=== PATIENT | female | born 1965 | race Caucasian/White ===

== ENCOUNTER 2021-05-09 08:16 | Outpatient (CLI) | payer OTHER, SELFPAY ==
--- NOTE | 2021-05-09 08:45 | USCV_ITS ---
Miroslava Zhang Age: 55 Gender: F : 1965 Exam Date: 05/09/2021 08:43 Ordering Phys: Jaimee Rinaldi MD ([email or web address]) Technologist: LYDIA [place] [facility] [place] Risk Factors: Previous Vascular Surgery: Right Brachial BP: / Left Brachial BP: / Right Left Velocity (cm/s) Spectral Plaque Velocity (cm/s) Spectral Plaque Syst/Diast Broadening Syst/Diast Broadening 87.10/ 24.30 Prox CCA 91.70 / 40.40 77.20/ 29.80 Mid CCA 85.40 / 34.20 76.10/ 29.80 Hetro Distal CCA 88.60 / 34.20 Hetro 76.10/ 31.10 Hetro Prox ICA 87.75 / 29.55 Hetro 80.80/ 28.00 Mid ICA 122.70/ 48.20 83.90/ 34.20 Distal ICA 121.20/ 37.30 155.40 ECA 1.09 ICA/CCA 1.44 Antegrade Vertebral Antegrade 49.70/ 15.50 cm/s 46.60/ 23.30 cm/s FINDINGS Minimal intimal thickening in the common carotid artery, internal carotid and at the bifurcations bilaterally. No unstable plaques or lesions were noted Normal Doppler flow velocities Antegrade flow in the vertebral arteries bilaterally CONCLUSIONS Minimal intimal thickening in the common carotid artery, internal carotid and at the bifurcations bilaterally. No unstable plaques or lesions were noted No significant stenosis, based on the above findings Dr Gerald Pompa MD [facility] (Electronically Signed) Final Date: 10 May 2021 07:46 S
--- NOTE | 2021-05-09 09:30 | USCV_ITS ---
Miroslava Zhang Age: 55 Gender: F : 1965 Exam Date: 05/09/2021 09:04 Ordering Phys: Jaimee Rinaldi MD ([email or web address]) Technologist: LYDIA Exam Location: [facility] – [place], [place] Indication: PALPITATIONS BP: 110 / 70 HR: 56 Rhythm: Other Technical Quality: Fair MEASUREMENTS (Male / Female) Normal Values 2D ECHO LV Diastolic Diameter PLAX 5.2 cm 4.2 - 5.9 / 3.9 - 5.3 cm LV Systolic Diameter PLAX 3.6 cm LV Chamber Size 3.7 cm IVS Diastolic Thickness 0.7 cm 0.6 - 1.0 / 0.6 - 0.9 cm IVS Systolic Thickness 1.3 cm LVPW Diastolic Thickness 0.6 cm 0.6 - 1.0 / 0.6 - 0.9 cm LVPW Systolic Thickness 1.3 cm RV Chamber Size 2.8 cm LVOT Diameter 2.0 cm LV Ejection Fraction 2D Teich 58.0 % LV Ejection Fraction MOD 2C 71.4 % LV Ejection Fraction 2C AL 71.9 % LA Diameter 3.6 cm LA Width 2.6 cm LA Height 4.5 cm RA Width 2.3 cm RA Height 3.6 cm Aorta at Sinotubular Diameter 3.2 cm M-MODE LV Diastolic Diameter MM 5.7 cm 4.2 - 5.9 / 3.9 - 5.3 cm LV Systolic Diameter MM 3.6 cm LV Ejection Fraction MM Teich 65.7 % IVS Diastolic Thickness MM 0.7 cm 0.6 - 1.0 / 0.6 - 0.9 cm IVS Systolic Thickness MM 1.3 cm LVPW Diastolic Thickness MM 0.9 cm 0.6 - 1.0 / 0.6 - 0.9 cm LVPW Systolic Thickness MM 1.4 cm Aortic Annulus Diameter 2.7 cm LA Ao Ratio MM 1.5 MV E Point Septal Separation 0.6 cm DOPPLER AV Peak Velocity 172.0 cm/s LVOT Peak Velocity 99.0 cm/s AV Area Cont Eq vti 2.0 cm squared AV Area Cont Eq pk 1.9 cm squared MV Area PHT 3.0 cm squared Mitral E to A Ratio 1.0 MV E' Velocity 56.0 cm/s Mitral E to MV E' Ratio 11.0 Mitral E to LV E' Lateral Ratio 13.6 Mitral E to LV E' Septal Ratio 9.3 TR Peak Velocity 229.0 cm/s TR Peak Gradient 21.0 mmHg TR Mean Velocity 182.2 cm/s TR Mean Gradient 14.1 mmHg TR Velocity Time Integral 79.0 cm TV Peak E Velocity 67.0 cm/s Right Atrial Pressure 3.0 mmHg Pulmonary Artery Systolic Pressu 24.0 mmHg PV Peak Velocity 88.0 cm/s RV Acceleration Time 0.1 s RV Ejection Time 0.4 s RV AcT/ET 0.4 FINDINGS Left Ventricle Normal left ventricular size, systolic function and wall thickness, with no regional wall motion abnormalities. Left ventricular ejection fraction is estimated at 55-60 %. Normal diastolic function. Right Ventricle Normal right ventricular size and systolic function. Right ventricular systolic pressure 24 mmHg. Right Atrium Normal right atrial size. Right atrial pressure estimated at 3 mm Hg. Left Atrium Mildly increased left atrial size. Mitral Valve Structurally normal mitral valve. No mitral valve stenosis. Mild-moderate mitral valve regurgitation. Aortic Valve Structurally normal trileaflet aortic valve. No aortic valve stenosis. No aortic valve regurgitation. Tricuspid Valve Structurally normal tricuspid valve. No tricuspid valve stenosis. Mild to moderate tricuspid valve regurgitation. Pulmonic Valve Pulmonic valve not well visualized. Trace pulmonary valve regurgitation. Pericardium No pericardial effusion. Aorta Normal size aortic root and proximal ascending aorta. Normal sized inferior vena cava with normal respiratory variations. CONCLUSIONS 1. Normal left ventricular size, systolic function and wall thickness, with no regional wall motion abnormalities. Left ventricular ejection fraction is estimated at 55-60 %. Normal diastolic function. 2. Mild to moderate mitral and tricuspid valve regurgitation. 3. Pulmonary artery pressure estimated at 24 mm Hg. 4. Mildly increased left atrial size. 5. No prior similar studies to compare. Jaimee Rinaldi MD (Electronically Signed) Final Date: 11 May 2021 19:36 S
== END 2021-05-09 08:17 | disposition home or self-care (01) ==
LOC: US 08:21
PROVIDERS: PCP Nurse Practitioner Family; Visit Provider Internal Medicine Cardiovascular Disease
DX: R00.2 Palpitations (principal); R55 Syncope and collapse; I08.1 Rheumatic disorders of both mitral and tricuspid valves; I65.23 Occlusion and stenosis of bilateral carotid arteries
CPT/HCPCS: 93306; 93880

== ENCOUNTER 2022-12-10 13:34 | Outpatient (CLI) | payer OTHER, SELFPAY ==
--- NOTE | 2022-12-10 14:00 | MM_ITS ---
WS: [id number] BILATERAL 3D TOMOSYNTHESIS DIGITAL SCREENING MAMMOGRAPHY WITH CAD CLINICAL INFORMATION: screening mammo HISTORY: Screening mammogram. No current complaints. COMPARISON: 2019 TECHNIQUE: Bilateral CC and MLO views. FINDINGS: Scattered fibroglandular densities bilaterally. No suspicious focal mass, asymmetry, calcifications, or architectural distortion. No evidence of malignancy. Scattered incidental intramammary lymph node similar to previous. A few tiny incidental punctate calcifications. MM/[place] [id number] IMPRESSION: BI-RADS: 2-Benign FOLLOW UP: 1 Year Follow-up Recommend return to annual screening mammography.
== END 2022-12-10 13:35 | disposition home or self-care (01) ==
PROVIDERS: PCP Clinical Nurse Specialist Adult Health; Visit Provider Clinical Nurse Specialist Adult Health
DX: Z12.31 Encounter for screening mammogram for malignant neoplasm of breast (principal)
CPT/HCPCS: 77063; 77067

== ENCOUNTER 2023-02-28 00:34 | Emergency (ER) | payer OTHER, SELFPAY ==
[2023-02-28] VITALS (8 sets, daily range): BP systolic 116–148; BP diastolic 59–90; PULSE 72–88; RESP 16–19; TEMP 36.6; O2SAT 95–99; BMI 35.4
--- NOTE | 2023-02-28 00:36 | XRR_ITS ---
PROCEDURE INFORMATION: Exam: XR Chest Exam date and time: 02/28/2023 12:59 AM Age: 57 years old Clinical indication: Chest pressure; Patient HX: C/O chest pain; Additional info: Cp TECHNIQUE: Imaging protocol: Radiologic exam of the chest. Views: 1 view. COMPARISON: CR XR chest 1V [id number] 06/09/2019 12:21 PM FINDINGS: Lungs: Unremarkable. No consolidation. Pleural spaces: Unremarkable. No pleural effusion. No pneumothorax. Heart/Mediastinum: Unremarkable. No cardiomegaly. Bones/joints: Unremarkable. XR/XR chest 1V portable [id number] IMPRESSION: No acute findings.
--- NOTE | 2023-02-28 00:38 | ECG_ITS ---
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 Measurements Intervals [place] Rate: 86 P: 82 ND: 162 QRS: 2 QRSD: 78 T: 114 QT: 348 QTc: 418 Interpretive Statements SINUS RHYTHM NONSPECIFIC T-WAVE ABNORMALITY Compared to ECG 06/09/2019 15:22:50 T-wave abnormality now present Electronically Signed On 02-28-2023 16:13:07 CDT by Stephane Lama M.D. [email or web address] specialty [email or web address] - cincinnatiFly Fishing Hunter/store/NU/[id number]/[id number] f
--- NOTE | 2023-02-28 00:45 | ED_ITS ---
HPI - Chest Pain General: Chief Complaint: Chest Pain Stated Complaint: Chest Pains Time Seen by Provider: 02/28/23 00:35 Source: patient Mode of arrival: ambulatory Limitations: no limitations History of Present Illness: 57-year-old female states that she has been having severe acid reflux the last 3 days especially at night states tonight started having the pain again in her chest developed burning pain at midnight states that then started rating to the left and she became extremely nervous she took a nitro and her pain has improved currently 2 out of 10 denies any diaphoresis denies any dyspnea states she has no history of heart disease. Associated symptoms: Deny abdominal pain, dyspnea, fever(s), nausea or vomiting Review of Systems Const: Denies: fever(s), chills or body aches Eyes: Denies: eye discomfort ENMT: Denies: throat pain or dental pain Card: Reports: chest pain Resp: Denies: dyspnea GI: Denies: abdominal pain, nausea, vomiting or diarrhea Musc: Denies: neck pain or back pain Skin/Breast: Denies: rash Neuro: Denies: headache(s) PFSH ED PFSH: Medical History Anxiety Depression GERD (gastroesophageal reflux disease) History of fracture of right ankle HTN (hypertension) Surgical History Hx of hysterectomy Hx of tonsillectomy Family History Brother CAD (coronary artery disease), Onset Age: 29 Stented coronary artery x8 Family history of premature coronary artery disease Cancer Mother Stented coronary artery CAD (coronary artery disease), Onset Age: 45 Cancer colon Father CAD (coronary artery disease), Onset Age: 43 Stented coronary artery Family history of CABG Other Diabetes Denies family history of Stroke Social History Smoking and tobacco status: current every day smoker cigarettes Packs smoked per day: 0.25 Alcohol intake: never Substance/Drug Use: never 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 [employer] Physical Exam Const: COMMON NORMALS: no acute distress, patient oriented x3 and healthy appearing HENMT: COMMON NORMALS: normocephalic and atraumatic HEAD & SCALP: normocephalic and atraumatic Eye: COMMON NORMALS: conjunctivae normal CONJUNCTIVA: Yes conjunctivae normal Neck/C-Spine: COMMON NORMALS: full ROM and supple Chest: COMMONS NORMALS: normal inspection of the chest and normal palpation of entire chest wall Resp: COMMON NORMALS: normal respiratory effort, No retractions, No use of accessory muscles and clear to auscultation bilaterally AUSCULTATION: clear to auscultation bilaterally Cardio: COMMON NORMALS: regular rate, regular rhythm and No murmurs present (Cardio) RATE: regular rate RHYTHM: regular rhythm GI: COMMON NORMALS: Normal to inspection, nondistended, normoactive bowel sounds present, Soft to palpation, non-tender and no masses PALPATION: Yes Soft to palpation Extremity: COMMON NORMALS: normal to inspection and full ROM Neuro: COMMON NORMALS: patient oriented x3, moves all extremities and no focal motor deficits Psych: COMMON NORMALS: mental status grossly normal, Normal thought process present and cooperative THOUGHT PROCESS: Normal thought process present Skin: COMMON NORMALS: no rashes or lesions noted and no wounds GENERAL SKIN EXAM: no rashes or lesions noted Course Vital Signs: Vital signs: Vital Signs Temperature 97.8 F 02/28/23 00:35 Pulse Rate 88 02/28/23 03:33 Respiratory Rate 16 02/28/23 03:33 Blood Pressure 134/76 02/28/23 03:33 Pulse Oximetry 97 02/28/23 03:33 Oxygen Delivery Me thod Room Air 02/28/23 03:33 MDM - Chest Pain Medical Decision Making Patient presents for chest pains atypical in nature she has been chest pain-free here her troponins are negative EKGs are normal she has no signs of pulmonary embolism or dissection she is stable for discharge she is to follow-up with PCP and return if worsening. Medical Records I reviewed the patient's medical records. Lab Data I reviewed the patient's lab results. 02/28/23 00:56 02/28/23 00:56 Radiology Impressions Chest X-Ray 02/28/23 00:36 IMPRESSION: No acute findings. Laboratory Results WBC 9.9 10^3/uL (4.0-10.0) 02/28/23 00:56 RBC 4.44 10^6/uL (4.1-5.3) 02/28/23 00:56 Hgb 12.9 g/dL (11.5-15.3) 02/28/23 00:56 Hct 40.2 % (37.0-47.0) 02/28/23 00:56 MCV 90.5 fl (81-99) 02/28/23 00:56 MCH 29.1 pg (28.0-34.0) 02/28/23 00:56 MCHC 32.1 g/dL (30.0-36.0) 02/28/23 00:56 RDW 13.2 % (12.1-15.1) 02/28/23 00:56 Plt Count 280 10^3/cmm (130-400) 02/28/23 00:56 MPV 10.2 fL (7.4-10.4) 02/28/23 00:56 Neut % (Auto) 54.4 % 02/28/23 00:56 Lymph % (Auto) 36.4 % 02/28/23 00:56 [place] % (Auto) 6.8 % 02/28/23 00:56 Eos % (Auto) 1.5 % 02/28/23 00:56 Baso % (Auto) 0.7 % 02/28/23 00:56 Neut # (Auto) 5.39 10^3/uL (1.8-7.7) 02/28/23 00:56 Lymph # (Auto) 3.6 10^3/uL (0.8-4.8) 02/28/23 00:56 [place] # (Auto) 0.7 10^3/uL (0.2-0.9) 02/28/23 00:56 Eos # (Auto) 0.2 10^3/uL (0.0-0.8) 02/28/23 00:56 Baso # (Auto) 0.1 10^3/uL (0.0-0.1) 02/28/23 00:56 Nucleated RBC % (auto) 0 % 02/28/23 00:56 Nucleated RBCs # 0.0 /100WBC 02/28/23 00:56 Sodium 138 mmol/L (136-145) 02/28/23 00:56 Potassium 3.9 mmol/L (3.5-5.1) 02/28/23 00:56 Chloride 102 mmol/L (98-107) 02/28/23 00:56 Carbon Dioxide 26 mmol/L (22-29) 02/28/23 00:56 Anion Gap 13.9 (5-19) 02/28/23 00:56 BUN 11 mg/dL (6-20) 02/28/23 00:56 Creatinine 0.6 mg/dL (0.5-0.9) 02/28/23 00:56 GFR Calculation 103.4 mL/min (90-130) 02/28/23 00:56 Glucose 106 mg/dL (65-115) 02/28/23 00:56 Calculated Osmolality 286 mOsm/kg (285-295) 02/28/23 00:56 Calcium 8.8 mg/dL (8.5-10.5) 02/28/23 00:56 Total Bilirubin 0.2 mg/dL (0.15-1.2) 02/28/23 00:56 AST 16 U/L (0-32) 02/28/23 00:56 ALT 13 U/L (0-33) 02/28/23 00:56 Alkaline Phosphatase 113 U/L (35-105) H 02/28/23 00:56 Troponin T Baseline 9 ng/L (0-10) 02/28/23 00:56 Troponin T 120 Minute 11.48 ng/L (0-10) H 02/28/23 02:57 Delta Troponin T 2.48 ABS# (0-10) 02/28/23 02:57 Total Protein 6.5 g/dL (6.6-8.7) L 02/28/23 00:56 Albumin 3.9 g/dL (3.5-5.2) 02/28/23 00:56 Globulin 2.6 g/dL (1.3-4.6) 02/28/23 00:56 Imaging Data CXR: I personally reviewed and interpreted this imaging study as follows: My impression: no acute abnormality EKG Data EKG 1: I personally reviewed and interpreted this EKG as follows: EKG interpretation date: 02/28/23 EKG interpretation time: 00:38 Interpretation: nsr hr [address] or t wave abnormalities qrs 78 qtc 392 EKG 2: I personally reviewed and interpreted this EKG as follows: EKG interpretation date: 02/28/23 EKG interpretation time: 02:33 Interpretation: nsr hr [address] or t wave abnormalities qrs 98 qtc 403 Discharge Plan Discharge Patient Disposition: Home Clinical Impression: Chest pain Condition: Stable Prescriptions: No Action omeprazole 20 mg capsule,delayed release(DR/EC) 20 mg PO DAILY aspirin 81 mg tablet,delayed release (DR/EC) 81 mg PO DAILY multivitamin Tablet 1 tab PO DAILY fluoxetine 20 mg capsule 20 mg PO DAILY Qty: 90 3RF metoprolol tartrate 25 mg tablet 12.5 mg PO BID Qty: 90 3RF prednisone 20 mg tablet See Rx Instructions .Route .COMPLEX Qty: 14 0RF Rx Instructions: 2 tabs PO daily for 4 days, then 1 tab PO daily X 4 days, then 0.5 tab daily for 4 days, then stop; gabapentin 100 mg capsule 100 mg PO DAILY Qty: 14 0RF Discharge Orders: Discharge ED (Routine); Ordered 02/28/23 Ordered By: Willam Ochoa Referrals: Kaushik Paul CORPORATE LIBRARIAN [Primary Care Provider] - Discharge Diet: Advance as tolerated Discharge Activity: Resume usual activity Patient Instructions: Chest Pain (ED) Coding Level of Care Code ED Carpenter Labor Supervisor for Wendy Leary
[2023-02-28] MEDS: lidocaine 2% viscous 15 ML, aluminum-mag hydrox-simethicon 30 ML, sucralfate oral liq 1 GM PO (00:56)
[2023-02-28] MEDS: aspirin 81 mg Chew Tablet 324 MG PO (00:56)
[2023-02-28 00:59] LABS: Basophils # 0.1 10^3/uL (0.0-0.1); Basophils % 0.7 %; Eosinophils # 0.2 10^3/uL (0.0-0.8); Eosinophils % 1.5 %; Hematocrit 40.2 % (37.0-47.0); Hemoglobin 12.9 g/dL (11.5-15.3); Lymphocytes # 3.6 10^3/uL (0.8-4.8); Lymphocytes % 36.4 %; Mean Corpuscular HGB Conc 32.1 g/dL (30.0-36.0); Mean Corpuscular Hemoglobin 29.1 pg (28.0-34.0); Mean Corpuscular Volume 90.5 fl (81-99); Mean Platelet Volume 10.2 fL (7.4-10.4); Monocytes # 0.7 10^3/uL (0.2-0.9); Monocytes % 6.8 %; Neutrophils # 5.39 10^3/uL (1.8-7.7); Neutrophils % 54.4 %; Nucleated Red Blood Cells % 0 %; Platelet Count 280 10^3/cmm (130-400); Red Blood Count 4.44 10^6/uL (4.1-5.3); Red Cell Distribution Width 13.2 % (12.1-15.1); White Blood Count 9.9 10^3/uL (4.0-10.0)
[2023-02-28 01:16] LABS: Troponin(5th) Baseline 9 ng/L (0-10)
[2023-02-28 01:19] LABS: Alanine Aminotransferase 13 U/L (0-33); Albumin Level 3.9 g/dL (3.5-5.2); Alkaline Phosphatase 113 U/L (35-105); Anion Gap 13.9 (5-19); Aspartate Amino Transferase 16 U/L (0-32); Blood Urea Nitrogen 11 mg/dL (6-20); Calcium 8.8 mg/dL (8.5-10.5); Carbon Dioxide 26 mmol/L (22-29); Chloride 102 mmol/L (98-107); Globulin 2.6 g/dL (1.3-4.6); Glomerular Filtration Rate 103.4 mL/min (90-130); Glucose 106 mg/dL (65-115); Osmolality Calculated 286 mOsm/kg (285-295); Potassium 3.9 mmol/L (3.5-5.1); Sodium 138 mmol/L (136-145); Total Bilirubin 0.2 mg/dL (0.15-1.2); Total Protein 6.5 g/dL (6.6-8.7)
--- NOTE | 2023-02-28 02:36 | ECG_ITS ---
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 Measurements Intervals [place] Rate: 67 P: -27 ID: 172 QRS: 35 QRSD: 98 T: 62 QT: 387 QTc: 411 Interpretive Statements SINUS RHYTHM NONSPECIFIC ST & T-WAVE ABNORMALITY Compared to ECG 02/28/2023 00:38:39 No significant changes Electronically Signed On 02-28-2023 16:15:50 CDT by Stephane Lama M.D. [email or web address] Namewayne healthcare main campusNavTech/store/OM/[id number]
[2023-02-28 03:26] LABS: Troponin 5 2HR 11.48 ng/L (0-10)
[2023-02-28 03:27] LABS: Troponin 5 2HR Delta 2.48 ABS# (0-10)
== END 2023-02-28 03:41 | disposition home or self-care (01) ==
PROVIDERS: Emergency Provider Emergency Medicine; PCP Clinical Nurse Specialist Adult Health
DX: R07.9 Chest pain, unspecified (principal); Z79.82 Long term (current) use of aspirin; I10 Essential (primary) hypertension; F17.210 Nicotine dependence, cigarettes, uncomplicated
CPT/HCPCS: 71045; 80053; 84484; 85025; 93005; 99285

== ENCOUNTER 2023-03-19 16:17 | Emergency (ER) | payer OTHER, SELFPAY ==
[2023-03-19 16:28] VITALS: BMI 36.3
[2023-03-19 16:33] VITALS: BP 152/83; PULSE 93; RESP 18; TEMP 36.7; O2SAT 96
--- NOTE | 2023-03-19 16:33 | ECG_ITS ---
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 Measurements Intervals [place] Rate: 90 P: 0 NC: 158 QRS: -1 QRSD: 74 T: 122 QT: 335 QTc: 411 Interpretive Statements SINUS RHYTHM NONSPECIFIC T-WAVE ABNORMALITY Compared to ECG 02/28/2023 02:33:16 No significant changes Electronically Signed On 03-19-2023 17:46:05 CDT by Pee Brock M.D. [email or web address] [email or web address] county general hospitalNextlytrumbull memorial hospital.QRGL/store/NU/[id number]/[id number] f
== END 2023-03-19 16:40 | disposition left against medical advice (07) ==
PROVIDERS: Emergency Provider Family Medicine; PCP Clinical Nurse Specialist Adult Health
DX: Z53.21 Procedure and treatment not carried out due to patient leaving prior to being seen by health care provider (principal)
CPT/HCPCS: 93005

== ENCOUNTER 2023-03-26 09:32 | Outpatient (CLI) | payer OTHER, SELFPAY ==
[2023-03-26 10:19] VITALS: BMI 36.6
--- NOTE | 2023-03-26 10:19 | ECG_ITS ---
[facility] Test Date: 2023-03-26 Pat Name: Miroslava Zhang Department: Room: Gender: Female Screen Operator: Vanessa Luis : 1965 Requested By: Kaushik Herrera Order Number: [id number] Nayan MD: Gerald Pompa M.D. Interpretive Statements NAME OF STUDY: EXERCISE SESTAMIBI STRESS TEST INDICATION: Chest Pain; Shortness of Breath PROCEDURE: The baseline electrocardiogram showed sinus bradycardia with diffuse nonspecific T wave changes in the precordial leads] . At the baseline, the patient's blood pressure was 137/98 mm Hg with a heart rate of 101. The patient exercised for 3 minutes on a standard Lui protocol. Patient attained a maximum heart rate of 149 beats per minute(90% of the maximum predicted heart rate) with a blood pressure at the peak exercise of 160/82 mm Hg. The EKG at the peak exercise revealed some nonspecific ST-T changes. Patient complained of chest pain and shortness of breath with exercise sestamibi was injected 1 minute prior to the peak exercise During the recovery phase, there were no new changes. The blood pressure went up to 250/107, during the recovery phase Blood pressure at the end of the recovery phase was 155/112 mm Hg with a heart rate of 101 per minute. CONCLUSION: 1. Nonspecific EKG changes with the treadmill exercise. 2. Exercise-induced chest pain and shortness of breath 3. Impaired exercise tolerance, attained a maximum of 4.6 METs 4. Hypertensive response to exercise 4. Sestamibi/Sestamibi perfusion results pending; see separate report. Electronically Signed On 03-28-2023 7:57:31 CDT by Gerald Pompa M.D. [email or web address].Sellf/store/[id number]
--- NOTE | 2023-03-26 10:20 | NMCV_ITS ---
NM jhoan perf SPECT r/s* [id number] Miroslava Zhang Age: 57 Gender: F : 1965 Exam Date: 03/26/2023 10:41 Ordering Phys: Kaushik Paul NP Technologist: BRITNI Guthrie Exam Location: [facility] Indications: CHEST PAIN STRESS TEST Please see separate stress test [facility] for full findings IMAGE PROTOCOL Rest/Stress 1 Exercise Day Radiopharmaceutical Dose (mCi) Administration Site Administered by Rest: Tc-99m 10.4 IV BRITNI Ware Sestamibi Stress:Tc-99m 33.0 IV BRITNI Ware Sestamibi Rest: 26-Mar-2023 60 Discovery 630 Stress: 26-Mar-2023 30 Discovery 630 Radiopharmaceutical was injected at 87 % maximum heart rate. Images obtained in supine and prone position. SPECT RESULTS Technical Quality: Excellent Raw Data Analysis: Normal Image Corrections: No attenuation or motion correction applied Summed Stress Score: 10 Summed Rest Score: 0 Summed Difference Score: 10 PERFUSION FINDINGS Moderate area of moderately decreased tracer uptake was noted in the mid and apical anterior, mid anterolateral, mid inferolateral, apical lateral and LV apex. Significant reversibility was noted in these regions at rest FUNCTIONAL RESULTS (calculated via Gated SPECT) Stress Image LV EF (%): 64 Stress EDV (mL):98 TID: 0.9 Stress ESV (mL):35 FUNCTIONAL FINDINGS: Segmental wall motion analysis revealing no gross wall motion abnormalities IMPRESSIONS 1. Myocardial perfusion imaging revealing moderate area of reversible defect involving the anterior, anterolateral, inferolateral, apical lateral and LV apex, suggesting ischemia in the distribution of the left and descending artery/circumflex artery. 2. Normal LV ejection fraction 64%. 3. LV wall motion analysis revealing no gross wall motion abnormalities. 4. Normal LV volume No similar previous studies are available for comparison Dr Gerald Pompa MD [facility] (Electronically Signed) Final Date: 26 Mar 2023 16:18 S
[2023-03-26 11:50] VITALS: BP 155/112; PULSE 100
== END 2023-03-26 09:33 | disposition home or self-care (01) ==
LOC: CDL 09:32
PROVIDERS: PCP Clinical Nurse Specialist Adult Health; Visit Provider Clinical Nurse Specialist Adult Health
DX: R07.9 Chest pain, unspecified (principal); R06.02 Shortness of breath
CPT/HCPCS: 36415; 78452; 93017; A9500

== ENCOUNTER → 2023-04-02 09:54 | Outpatient (BNVA) | payer OTHER, SELFPAY | PROVIDERS: PCP Clinical Nurse Specialist Adult Health; Visit Provider Nurse Practitioner | DX: I10 Essential (primary) hypertension (principal) | CPT/HCPCS: 80061; 84443 ==

== ENCOUNTER 2023-04-03 16:02 | Inpatient (IN) | payer OTHER, SELFPAY ==
[2023-04-03 18:05] VITALS: BMI 32.1
[2023-04-03 20:19] VITALS: BP 119/70; PULSE 81; RESP 21; TEMP 36.7; O2SAT 95
--- NOTE | 2023-04-03 20:24 | ECG_ITS ---
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 Measurements Intervals [place] Rate: 74 P: 41 TN: 177 QRS: 35 QRSD: 89 T: 78 QT: 393 QTc: 438 Interpretive Statements SINUS RHYTHM ST DEVIATION AND MODERATE T-WAVE ABNORMALITY, CONSIDER ANTERIOR ISCHEMIA [-0.1+ mV T-WAVE IN V3/V4] Compared to ECG 03/19/2023 16:28:15 Possible ischemia now present T-wave abnormality still present Electronically Signed On 04-04-2023 17:39:03 CDT by Pee Brock M.D. [email or web address] ([employer])Renavance Pharmacleveland [facility].AltraBiofuels/store/OM/[id number]
[2023-04-03] MEDS: sodium chloride 0.9% 1,000 ML 75 ML IV (20:58)
[2023-04-03 21:15] LABS: Basophils # 0.1 10^3/uL (0.0-0.1); Basophils % 0.5 %; Eosinophils # 0.2 10^3/uL (0.0-0.8); Eosinophils % 1.4 %; Hemoglobin 13.3 g/dL (11.5-15.3); Lymphocytes # 3.9 10^3/uL (0.8-4.8); Lymphocytes % 33.2 %; Mean Corpuscular HGB Conc 33.3 g/dL (30.0-36.0); Mean Corpuscular Hemoglobin 30.6 pg (28.0-34.0); Mean Platelet Volume 9.9 fL (7.4-10.4); Monocytes # 0.8 10^3/uL (0.2-0.9); Monocytes % 7.1 %; Neutrophils # 6.76 10^3/uL (1.8-7.7); Neutrophils % 57.5 %; Nucleated Red Blood Cells % 0 %; Platelet Count 258 10^3/cmm (130-400); Red Blood Count 4.35 10^6/uL (4.1-5.3); Red Cell Distribution Width 13.6 % (12.1-15.1); White Blood Count 11.8 10^3/uL (4.0-10.0)
--- NOTE | 2023-04-03 21:16 | PM.HP ---
Providers/Chief Complaint Admitting Physician: Pee Brock M.D Primary Care Provider: Kaushik Paul Chief Complaint: Unstable Angina History of Present Illness Miroslava Zhang is a 57 year old female with past medical history of hypertension, smoking who was seen earlier in the clinic today with worsening chest pain symptoms. Her symptoms are concerning for unstable angina. She wakes up in the middle of the night with significant chest pain. Also has exertional symptoms as well. No active chest pain. Review of Systems Const: Reports: fatigue Card: Reports: chest pain, palpitations and dyspnea on exertion; Denies: irregular heart rhythm, swelling of feet/ankles, lightheadedness, pre-syncope, orthopnea or leg pain with exertion Resp: Reports: dyspnea; Denies: productive cough or non-productive cough Musc: Reports: neck pain; Denies: back pain Neuro: Reports: headache(s); Denies: dizziness Psych: Denies: anxiety, depression, suicidal ideation or homicidal ideation Bob/Lymph: Denies: easy bruising or easy bleeding Medications/Allergies Home Medications Medication Instructions Recorded Confirmed Last Taken Type aspirin 81 mg tablet,delayed 81 mg PO QAM 01/09/21 04/04/23 Unknown History release multivitamin 1 tab PO QAM 01/09/21 04/04/23 Unknown History metoprolol tartrate 25 mg tablet 12.5 mg PO BID #90 tabs 11/27/22 04/04/23 Unknown Rx nitroglycerin 0.4 mg sublingual 0.4 mg sublingual Q5M PRN chest 03/08/23 04/04/23 Unknown Rx tablet pain #20 tabs omeprazole 20 mg capsule,delayed 20 mg PO QAM 04/02/23 04/04/23 Unknown History release pen needle, diabetic 33 gauge x #100 ea 04/03/23 04/04/23 Unknown Rx / acetaminophen 500 mg tablet 1,000 mg PO Q6H PRN Pain 04/04/23 04/04/23 Unknown History fluoxetine 40 mg capsule 40 mg PO QAM 04/04/23 04/04/23 Unknown History liraglutide 0.6 mg/0.1 mL (18 mg/3 See Rx Instructions SUBCUT 04/04/23 04/04/23 Unknown History mL) subcutaneous pen injector .COMPLEX not started as of 04/04/23 (Victoza 3-Tony) valsartan 80 mg tablet (Diovan) 80 mg PO QAM 04/04/23 04/04/23 Unknown History Allergies Allergy/AdvReac Type Severity Reaction Status Date / Time bee stings Allergy Severe anaphylaxis Uncoded 04/03/23 14:31 PFSH Acute PFSH: Medical History Anxiety Depression GERD (gastroesophageal reflux disease) History of fracture of right ankle HTN (hypertension) Obesity (BMI 30-39.9) Surgical History Hx of hysterectomy Hx of tonsillectomy Family History Brother CAD (coronary artery disease), Onset Age: 29 Stented coronary artery x8 Family history of premature coronary artery disease Cancer Mother Stented coronary artery CAD (coronary artery disease), Onset Age: 45 Cancer colon Father CAD (coronary artery disease), Onset Age: 43 Stented coronary artery Family history of CABG Other Diabetes Denies family history of Stroke Social History Smoking and tobacco status: current every day smoker cigarettes Packs smoked per day: 0.25 Second hand smoke exposure: No Smoking risk assessment/counseling performed?: Yes Alcohol intake: unknown Desire information about alcohol rehabilitation?: No Counseling given: No Substance/Drug Use: unknown Desire information about substance/drug rehabilitation?: No Counseling given: No Adopted: No Caregiver/support person: No Lives independently: Yes Household members: none Housing: House Marital status: Single Number of children: 2 service: No Current occupational status: employed 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 [] NECK: No jugular vein distension. [] HEENT: No cyanosis. No icterus. No pallor. [] HEART: Regular S1 and S2. No murmur, rub or gallop. [] LUNGS: Clear to auscultate bilaterally. [] CENTRAL NERVOUS SYSTEM: Grossly nonfocal. [] EXTREMITIES: Lower extremities with no edema Data 04/03/23 20:55 04/03/23 20:55 A&P Assessment and plan (1) Unstable angina: (2) Metabolic syndrome: (3) Abnormal stress test: (4) HTN (hypertension): Qualifiers: Hypertension type: essential hypertension Qualified Code(s): I10 - Essential (primary) hypertension Plan Patient has presented with unstable anginal symptoms. We will obtain EKG. Continue aspirin. No active chest pain. N.p.o. past midnight. Plan for coronary angiogram with possible percutaneous pulmonary intervention in the morning. Risks and benefits of the procedure have been discussed with the patient. We will obtain an echocardiogram. Tele monitoring. Attestations Medical Necessity Statement*: Care expected to cross 2 midnights. Coding Level of Care Code Acute Code for [facility] Fwd Diagnoses Unstable angina I20.0 Metabolic syndrome E88.81 Abnormal stress test R94.39 HTN (hypertension) I10 Hypertension type: essential hypertension
[2023-04-03 21:25] LABS: Anion Gap 12.2 (5-19); Blood Urea Nitrogen 16 mg/dL (6-20); Calcium 8.8 mg/dL (8.5-10.5); Carbon Dioxide 27 mmol/L (22-29); Chloride 104 mmol/L (98-107); Glomerular Filtration Rate 103.4 mL/min (90-130); Glucose 113 mg/dL (65-115); Osmolality Calculated 290 mOsm/kg (285-295); Potassium 4.2 mmol/L (3.5-5.1); Sodium 139 mmol/L (136-145)
[2023-04-04] VITALS (20 sets, daily range): BP systolic 80–159; BP diastolic 66–95; PULSE 67–96; RESP 14–24; TEMP 36.6–36.9; O2SAT 94–100
--- NOTE | 2023-04-04 06:18 | XACV_ITS ---
Exam Room: [facility] Ht: 163 cm Wt: 85 kg BSA: 1.99 m2 Gender: Female : 1965 Exam Priority: Routine Procedure(s): Procedure Description: Diagnostic procedure Procedure Description: PCI procedure Procedure Description: Coronary IVUS Procedure Description: Drug Eluting Coronary Stent Procedure Description: PTCA Procedure Description: Miscellaneous Procedure Description: ACT Procedure Description: Coronary Angiography Diagnostic Cath Status: Urgent Diagnostic Findings * INDICATION: Unstable angina. * Left Main has no significant disease. * Circumflex has no significant disease. * Right Coronary Artery has no significant disease. * Ostial to Proximal Left Anterior Descending: critical 95% stenosis, GERSON: 3 flow. * Coronary angiography shows right dominance. PCI Status: Urgent PCI Indication: Other Interventional Findings * PROCEDURE DETAIL: We engaged left main artery with XB 3.0 guide catheter. IV heparin was administered to maintain anticoagulation. 0.014 BMW guidewire was used to cross the critical ostial to proximal LAD stenosis . IVUS was performed to size the vessel. MLA of 2.7 mm2 was obtained. We predilated the stenosis with 3.0 x 12 mm semicompliant balloon. This was followed by placement of 3.5 x 12 mm resolute Trever drug-eluting stent. At this time IVUS was performed again that showed excellent stent expansion and no residual stenosis. Guidewire and guide catheter were removed. Patient left the Screen Printing Inspector in a stable condition.. * Proximal Left Anterior Descendin% stenosis treated with a AB TREK 3.00X12 RX BALLOON, and MDT R TREVER 3.5X12 NEENA. 0% residual stenosis, GERSON: 3 flow. Conclusions 1. Critical ostial proximal LAD stenosis s/p successful revascularization with NEENA x1.. 2. Proximal Left Anterior Descending was treated with a Balloon, and Drug Eluting Stent. Recommendations * Dual antiplatelet therapy with aspirin and Brilinta for at least 1 year. * High intensity statin therapy. * Outpatient cardiology follow-up in 4 weeks. * Aggressive risk factor modification. Interventional RX Recommendation: PCI w/o planned CABG Diagnostic RX Recommendation: PCI w/o planned CABG Anticoagulation: Heparin Pressures Phase:Rest AO : 108 / 79 ( 92 ) @ 11:06:00 AM 131 / 88 ( 108 ) @ 11:15:00 AM 79 / 54 ( 64 ) @ 11:19:00 AM 108 / 76 ( 92 ) @ 11:26:00 AM 111 / 74 ( 92 ) @ 11:29:00 AM Clinical Evaluation EBL: 5mL-10mL Procedural Details Procedure Consent Obtained. Admit Source: In Patient. Pre-Procedure Time Out. Identified patient by full name and date of as verbalized by the patient/guarantor. Does the consent match the physician's order: Yes. Accurate & Complete Informed Consent: Yes. Inpatient/Outpatient History & Physical on Chart: Yes. If H&P is completed, is and addenduem needed: No; If yes, is the addendum complete: N/A. Visualize and Verify Site with Patient/Guarantor: N/A. Relevant Radiology Images available: N/A. The risks, benefits, and alternatives of sedation and/or procedure were discussed by physician. The patient agrees to continue. Procedure started. [facility] Clinical Fraility Score: 3: Managing Well. Screen Printing Inspector Indications: Worsening Angina. Chest Pain Symptom Assessment: Typical Angina Symptoms. Correct patient, site and procedure confirmed by cath team. PERRLA. Strong, equal hand telescope operator bilaterally. Lungs clear x 5 lobes. IV Site on Arrival: 20 gauge in the right anticubital. IV Fluids: 0.9% NaCl at KVO. 800 mL infused prior to slabbing machine operator. Pre Procedural Pulses: bilateral radial was 2+. Pre Procedural Pulses: bilateral dorsalis pedis was 2+. Oxygen started at 0liters/min via nasal canula. right groin was prepped with chloroprep then draped in the usual sterile fashion. right radial was prepped with chloroprep then draped in the usual sterile fashion. Physician notified. Baseline sample Acquired. HR: 85 BPM. Physician arrived. Physician scrubbed in. Immediate Pre-Procedure Time Out. Correct Patient: Yes; Correct Procedure: Yes; Correct Site: Yes; Correct Patient Position: Yes; Correct Supplies: Yes; Dried Flammable Prep: Yes; Blood Products Available: Yes;. Lidocaine 1% infiltrated to the right radial. Ultrasound being used to obtain access. Arterial access obtained. A 5 chilean TIG catheter in over wire. Multiple views taken of left coronary artery. Catheter redirected to the RCA. Multiple views taken of right coronary artery. Catheter out. 6 chilean XB 3 guide catheter was inserted over the wire. Family updated. BM guidewire was advanced through the guide catheter to lesion in the prox LAD. IVUS catheter inserted. IVUS catherter out. Inflation number : 1 A AB TREK 3.00X12 RX BALLOON was prepped and advanced across the Prox LAD , then inflated to 12 DEE for 0:15 seconds. Inflation number: 2 The AB TREK 3.00X12 RX BALLOON was reinflated across the Prox LAD, to 12 DEE for 0:16 seconds. Balloon out. Inflation Number : 3 Noe Miller TREVER 3.5X12 NEENA -Lot Number# [id number] exp date 02/18/24 was prepped and advanced across the Prox LAD. The stent was deployed at 12 DEE for 0:18 seconds. Stent balloon out over wire. Results checked. IVUS catheter inserted. IVUS run of LAD performed. IVUS run of LAD performed. IVUS catherter out. Results checked. Wire out. ACT drawn. Results 328 seconds. Therapeutic limits - pre-heparin administration 90-150 seconds and monitoring heparin during a vascular procedure >250 seconds. Post-op diagnosis: severe proximal LAD stenosis, post PCI with 1 stent. A TR Band was successful obtaining hemostatsis at the Right Radial artery insertion site. Post Procedure: Pulses reassessed and unchanged. A 16Fr parker catheter was inserted without resistance maintaining sterile technique. Bag to gravity with clear urine returning. PERRLA. Strong, equal hand telescope operator bilaterally. No VTE prophylaxis required. Medication's Wasted: Nitro = 49.6 mg. Medication's Wasted: Heparin = 2000 units. Medication's Wasted: Other = vesed 1 mg. Medication's Wasted: Other = Fentanyl 75 mcg. Total IV fluids: 61 mL. Estimated blood loss: 5mL-10mL. Complications: . Complications: none. Responsiveness - Normal response to verbal stimuli; alert and oriented, PERRLA. Airway - Unaffected, no intervention required; spontaneous ventilation. Circulation: W/N/L, pulses unchanged. Nausea/Vomiting: No. Procedure completed. Patient transferred by bed to 1st floor. Vital chart was stopped. Access Site Site: Right Radial artery Sheath Size: 6 Fr Hemostasis Method: TR Band Hemostasis Success: Successful Procedure Medications Start: 9:51 AM Stop: 9:51 AM Medication: Versed Amount: 1 mg Route: I.V. Start: 9:51 AM Stop: 9:51 AM Medication: Fentanyl Amount: 50 mcg Route: I.V. Start: 9:57 AM Stop: 9:57 AM Medication: Versed Amount: 1 mg Route: I.V. Start: 10:04 AM Stop: 10:04 AM Medication: Nitrogylcerin Amount: 200 mcg Route: I.A. Start: 10:04 AM Stop: 10:04 AM Medication: Versed Amount: 1 mg Route: I.V. Start: 10:06 AM Stop: 10:06 AM Medication: Heparin Amount: 5000 units Route: I.V. Start: 10:11 AM Stop: 10:11 AM Medication: Versed Amount: 1 mg Route: I.V. Start: 10:11 AM Stop: 10:11 AM Medication: Nitrogylcerin Amount: 200 mcg Route: I.C. Start: 10:12 AM Stop: 10:12 AM Medication: Fentanyl Amount: 25 mcg Route: I.V. Start: 10:17 AM Stop: 10:17 AM Medication: Fentanyl Amount: 25 mcg Route: I.V. Start: 10:18 AM Stop: 10:18 AM Medication: Heparin Amount: 4000 units Route: I.V. Start: 10:28 AM Stop: 10:28 AM Medication: Fentanyl Amount: 25 mcg Route: I.V. Start: 10:29 AM Stop: 10:29 AM Medication: Versed Amount: 1 mg Route: I.V. Start: 10:45 AM Stop: 10:45 AM Medication: Brilinta Amount: 180 mg Route: P.O. I, the attending physician, have reviewed and verified all procedure medications. Yes, all medications given per verbal order History/Risk Factors Hypertension: Yes Dyslipidemia: No Peripheral Arterial Disease (PAD): No Myocardial Infarction (NV): No Obesity: No Tobacco Use: Current/Recent(w/in 1 year) Prior Interventions PCI: No CABG: No Valve Surgery: No Report Signatures Finalized by Pee Brock MD on 04/14/2023 12:08 PM
[2023-04-04] MEDS: metoprolol tartrate 25 mg Tablet 12.5 MG PO ×2 (08:46→21:05)
[2023-04-04] MEDS: fluoxetine 20 mg Capsule 40 MG PO (08:46)
[2023-04-04] MEDS: aspirin 81 mg EC Tablet PO (08:46)
--- NOTE | 2023-04-04 09:54 | W.PM.OPSUD ---
Surgery/Procedure H&P Update DATE OF PROCEDURE: April 04, 2023 DATE H&P PERFORMED: 04/03/23 H&P UPDATE INFORMATION: I have reviewed H&P completed within last 30 days, I have examined patient prior to procedure and No changes to prior documentation PREOP DIAGNOSIS: Unstable angina/abnormal stress test PRIMARY INDICATION FOR PROCEDURE: Unstable angina/abnormal stress test PLANNED PROCEDURE: Left heart cath with possible percutaneous coronary intervention PATIENT REASSESSED PRIOR TO SEDATION, WITH NO CHANGE NOTED: Yes PHYSICAL EXAM: alert, oriented x 3, clear to auscultation bilaterally and regular rate & rhythm AIRWAY EVAL/ANESTHESIA PLAN: normal airway, ASA III, Local Anesthesia, Risks, benefits & alternatives of sedation and/or procedure discussed and Patient agrees to continue as planned ADDITIONAL INFORMATION: Moderate sedation
--- NOTE | 2023-04-04 10:31 | PC.CHAP ---
Pastoral Care Encounter/Spiritual Assessment Type of Contact [] Declined salon stylist visit [] Patient/Family/Request visit [] Outpatient visit [] Follow-up visit [] Physician referral [] Code/Alert [x] Routine visit [] Staff referral [] Actively dying [] Patient sleeping [] Family support [] [] Out of room [] Palliative care [] [x] Receiving care in room [] Pre-surgical visit [] Trauma [] Long length of stay [] ICU visit [] Other: Relational/Emotional Strength [x] Patient feels connected with others/family/visitors/staff [] Distress [] Loneliness/isolation [] Abandonment Spirituality of Patient [x] Person of [place]ista [] Attends Adventist of their [place] [x] Believes in Prayer [] Reads Bible or Holiness materials [] There are Spiritual issues to be addressed Medical Affairs Leader Interventions [x] Prayer [x] Active listening [x] Non-anxious presence [x] Spiritual/emotional support [] Crisis/trauma care [x] Spiritual counseling [] Bereavement support [] Provided bereavement packet [] Provided Bible/devotional materials [] Provided toy/stuffed animal, coloring book to patient or family member [] Provided Communion [] Anointing/[place] [] Salvation [c] Completed spiritual assessment [] Other: Impact on Illness or Injury [] Angry [] Fearful [] Anxious [] Often cries [] Exhaustion [] Unable to work [] Unable to attend spiritism [] Unable to walk/stand [] Unable to read [] Unable to drive [] Unable to eat/drink [] Unable to sleep [] Unable to be with family [] Patient intubated [] Other: Summary had stents proceduer + 4 feels good well go home has a good attitude Time spent with patient 10 mins
--- NOTE | 2023-04-04 10:56 | PM.PN ---
Subjective Subjective: Patient underwent coronary angiogram that showed critical 95% stenosis in proximal LAD. S/p PCI with NEENA x1. Vitals/I&O/Wt Last Vital Signs Temp 97.9 F 04/04/23 04:30 Pulse 80 04/04/23 07:49 Resp 17 04/04/23 07:49 BP 133/89 04/04/23 07:49 Pulse Ox 98 04/04/23 07:49 O2 Del Method Room Air 04/04/23 07:25 04/03/23 04/04/23 04/04/23 22:59 06:59 14:59 Output Total 600 / 600 Balance -600 / -600 Weight last 48 hrs Weight 187 lb Physical Exam Narrative: GENERAL: Patient is alert, awake and oriented x3. [] NECK: No jugular vein distension. [] HEENT: No cyanosis. No icterus. No pallor. [] HEART: Regular S1 and S2. No murmur, rub or gallop. [] LUNGS: Clear to auscultate bilaterally. [] CENTRAL NERVOUS SYSTEM: Grossly nonfocal. [] EXTREMITIES: Lower extremities with no edema Data 04/03/23 20:55 04/03/23 20:55 A&P Assessment and plan (1) Unstable angina: (2) Metabolic syndrome: (3) Abnormal stress test: (4) HTN (hypertension): Qualifiers: Hypertension type: essential hypertension Qualified Code(s): I10 - Essential (primary) hypertension Plan Patient underwent successful revascularization of proximal LAD with ENENA x1. Patient loaded with Brilinta. Continue aspirin and Brilinta for at least 1 year. Echocardiogram ordered. High intensity statin therapy Continue tele monitoring. Attestations Medical Necessity Statement*: Care expected to cross 2 midnights. Coding Level of Care Code Acute Code for [facility] Fwd Diagnoses Unstable angina I20.0 Metabolic syndrome E88.81 Abnormal stress test R94.39 HTN (hypertension) I10 Hypertension type: essential hypertension
[2023-04-04] MEDS: sodium chloride 0.9% 1,000 ML 100 ML IV (13:36)
--- NOTE | 2023-04-04 16:53 | USCV_ITS ---
Miroslava Zhang Age: 57 Gender: F : 1965 Exam Date: 04/04/2023 17:12 Ordering Phys: Pee Brock M.D ([email or web address]) Technologist: Tone Rader [place] [facility] [place] BP: 154 / 74 HR: 55 Rhythm: Sinus Technical Quality: Adequate MEASUREMENTS (Male / Female) Normal Values 2D ECHO LV Diastolic Diameter PLAX 3.7 cm 4.2 - 5.9 / 3.9 - 5.3 cm LV Systolic Diameter PLAX 2.5 cm IVS Diastolic Thickness 0.9 cm 0.6 - 1.0 / 0.6 - 0.9 cm IVS Systolic Thickness 1.3 cm LVPW Diastolic Thickness 1.2 cm 0.6 - 1.0 / 0.6 - 0.9 cm LVPW Systolic Thickness 1.1 cm LVOT Diameter 2.0 cm LV Ejection Fraction 2D Teich 60.6 % LV Ejection Fraction MOD 2C 69.1 % LV Ejection Fraction 2C AL 69.3 % LA Diameter 3.6 cm M-MODE Aortic Annulus Diameter 2.8 cm LA Ao Ratio MM 1.3 MV E Point Septal Separation 1.4 cm DOPPLER AV Peak Velocity 199.7 cm/s LVOT Peak Velocity 110.0 cm/s AV Area Cont Eq vti 2.3 cm squared AV Area Cont Eq pk 1.7 cm squared MV Area PHT 2.5 cm squared Mitral E to A Ratio 0.8 MV E' Velocity 46.0 cm/s Mitral E to MV E' Ratio 10.6 Mitral E to LV E' Lateral Ratio 9.5 Mitral E to LV E' Septal Ratio 12.2 TR Peak Velocity 270.3 cm/s TR Peak Gradient 29.2 mmHg TV Peak E Velocity 84.0 cm/s Right Atrial Pressure 3.0 mmHg Pulmonary Artery Systolic Pressu 32.2 mmHg RV Acceleration Time 0.1 s FINDINGS Left Ventricle Left ventricle is normal in size. LV systolic function is normal with EF of 55 to 60%. No regional wall motion normalities are seen. Grade 1 diastolic dysfunction Right Ventricle Normal in size and function Right Atrium Normal in size Left Atrium Normal in size Mitral Valve Structurally normal mitral valve. Aortic Valve Structurally normal aortic valve. No significant stenosis or regurgitation. Tricuspid Valve Mild tricuspid regurgitation. Pulmonary artery systolic pressure is 30-35mmhg Pulmonic Valve Not well-visualized Pericardium Normal Aorta Normal in size IVC Appears to be normal CONCLUSIONS LV systolic function is normal with EF of 55 to 60%. Grade 1 diastolic dysfunction Mild tricuspid regurgitation No comparison studies are available Pee Brock MD (Electronically Signed) Final Date: 13 April 2023 13:26 S
[2023-04-04] MEDS: ticagrelor 90 mg Tablet PO (17:03)
[2023-04-04] MEDS: acetaminophen 325 mg Tablet 650 MG PO (17:03)
--- NOTE | 2023-04-04 17:18 | PC.NURSE ---
Dr. Brock ordered fentanyl 25mcg once for her wrist pain.
--- NOTE | 2023-04-04 17:34 | USR_ITS ---
PROCEDURE INFORMATION: Exam: US Duplex Right Upper Extremity Arteries Exam date and time: 04/04/2023 6:18 PM Age: 57 years old Clinical indication: Pain; Arm, upper; Right; Additional info: Right forearm pain after cardiac catheterization TECHNIQUE: Imaging protocol: Right Real-time ultrasound scan of the arteries of the right upper extremity with 2-D you scale, color Doppler flow and spectral waveform analysis. COMPARISON: No relevant prior studies available. FINDINGS: Right subclavian artery: No occlusion or significant stenosis. Normal waveform. Right axillary artery: No occlusion or significant stenosis. Normal waveform. Right brachial artery: No occlusion or significant stenosis. Normal waveform. Right radial artery: No occlusion or significant stenosis. Normal waveform. Right ulnar artery: No occlusion or significant stenosis. Normal waveform. US/[place] [id number] IMPRESSION: No acute findings.
[2023-04-04] MEDS: fentaNYL 50 mcg/mL INJ 2mL 25 MCG IVP (17:36)
--- NOTE | 2023-04-04 19:15 | PC.NURSE ---
Right radial cath site dressing is dry and intact. Site is tender and small amount of bruising noted. Radial pulse is palpable and right hand is warm with good capillary refill<3sec. The patient denies any pain at this time.
[2023-04-04] MEDS: atorvastatin 40 mg Tablet PO (21:05)
[2023-04-04] MEDS: temazepam 15 mg Capsule PO (21:06)
[2023-04-05 03:32] VITALS: BP 141/60; PULSE 69; RESP 12; O2SAT 97
[2023-04-05 04:16] LABS: Basophils # 0.1 10^3/uL (0.0-0.1); Basophils % 0.7 %; Eosinophils # 0.2 10^3/uL (0.0-0.8); Eosinophils % 2.4 %; Hematocrit 40.8 % (37.0-47.0); Hemoglobin 13.1 g/dL (11.5-15.3); Lymphocytes # 1.9 10^3/uL (0.8-4.8); Mean Corpuscular HGB Conc 32.1 g/dL (30.0-36.0); Mean Corpuscular Hemoglobin 29.4 pg (28.0-34.0); Mean Corpuscular Volume 91.7 fl (81-99); Mean Platelet Volume 10.2 fL (7.4-10.4); Monocytes # 0.6 10^3/uL (0.2-0.9); Monocytes % 7.4 %; Neutrophils # 4.68 10^3/uL (1.8-7.7); Neutrophils % 63.1 %; Nucleated Red Blood Cells % 0 %; Platelet Count 278 10^3/cmm (130-400); Red Blood Count 4.45 10^6/uL (4.1-5.3); Red Cell Distribution Width 13.3 % (12.1-15.1); White Blood Count 7.4 10^3/uL (4.0-10.0)
[2023-04-05 04:38] LABS: Blood Urea Nitrogen 10 mg/dL (6-20); Calcium 8.5 mg/dL (8.5-10.5); Carbon Dioxide 23 mmol/L (22-29); Chloride 107 mmol/L (98-107); Glomerular Filtration Rate 127.6 mL/min (90-130); Glucose 88 mg/dL (65-115); Osmolality Calculated 288 mOsm/kg (285-295); Sodium 140 mmol/L (136-145)
[2023-04-05 04:39] VITALS: BP 141/60; PULSE 65; RESP 19; TEMP 36.6; O2SAT 95
[2023-04-05 05:19] LABS: Anion Gap 14.1 (5-19); Potassium 4.1 mmol/L (3.5-5.1)
[2023-04-05 06:00] VITALS: PULSE 73
[2023-04-05 07:33] VITALS: BP 158/70; PULSE 75; RESP 16; TEMP 36.4; O2SAT 98
[2023-04-05] MEDS: aspirin 81 mg EC Tablet PO (08:33)
[2023-04-05] MEDS: ticagrelor 90 mg Tablet PO (08:33)
[2023-04-05] MEDS: fluoxetine 20 mg Capsule 40 MG PO (08:34)
[2023-04-05] MEDS: metoprolol tartrate 25 mg Tablet 12.5 MG PO (08:34)
--- NOTE | 2023-04-05 09:05 | P.DS_ITS ---
Discharge Providers Date of Admission: 04/03/23 16:02 Date of Discharge: April 05, 2023 Attending Provider at Admission: Pee Brock M.D Attending Provider at Discharge: Pee Brock M.D Primary Care Provider: VINCE Lucero Diagnoses at Discharge Discharge Diagnosis (1) Unstable angina: Status: Inactive (2) Metabolic syndrome: Status: Acute (3) Abnormal stress test: Status: Inactive (4) HTN (hypertension): Status: Chronic Qualifiers: Hypertension type: essential hypertension Qualified Code(s): I10 - Essential (primary) hypertension Reason for Visit Reason for Visit: Unstable Angina Brief History: 57 year old female with past medical history of hypertension, smoking who directly admitted from clinic as was having worsening chest pain symptoms.? Her symptoms are concerning for unstable angina.? She wakes up in the middle of the night with significant chest pain.? Also has exertional symptoms as well. No active chest pain. EKG concerning for anterior wall ischemia. Also had recent abnormal stress test Hospital Course Hospital Course Coronary angiogram revealed critical ostial to proximal LAD stenosis. Successful revascularization with NEENA x1. Echocardiogram showed normal LV systolic function. He was observed overnight in the hospital and was stayed stable. She was discharged home on dual antiplatelet therapy including aspirin and Brilinta. Physical Exam Narrative: GENERAL: Patient is alert, awake and oriented x3. [] NECK: No jugular vein distension. [] HEENT: No cyanosis. No icterus. No pallor. [] HEART: Regular S1 and S2. No murmur, rub or gallop. [] LUNGS: Clear to auscultate bilaterally. [] CENTRAL NERVOUS SYSTEM: Grossly nonfocal. 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 echo complete* [id number] Routine Ultrasound 04/04/23 16:53 Taken Laboratory Results WBC 7.4 10^3/uL (4.0-10.0) 04/05/23 03:24 RBC 4.45 10^6/uL (4.1-5.3) 04/05/23 03:24 Hgb 13.1 g/dL (11.5-15.3) 04/05/23 03:24 Hct 40.8 % (37.0-47.0) 04/05/23 03:24 MCV 91.7 fl (81-99) 04/05/23 03:24 MCH 29.4 pg (28.0-34.0) 04/05/23 03:24 MCHC 32.1 g/dL (30.0-36.0) 04/05/23 03:24 RDW 13.3 % (12.1-15.1) 04/05/23 03:24 Plt Count 278 10^3/cmm (130-400) 04/05/23 03:24 MPV 10.2 fL (7.4-10.4) 04/05/23 03:24 Neut % (Auto) 63.1 % 04/05/23 03:24 Lymph % (Auto) 26.0 % 04/05/23 03:24 Inyo % (Auto) 7.4 % 04/05/23 03:24 Eos % (Auto) 2.4 % 04/05/23 03:24 Baso % (Auto) 0.7 % 04/05/23 03:24 Neut # (Auto) 4.68 10^3/uL (1.8-7.7) 04/05/23 03:24 Lymph # (Auto) 1.9 10^3/uL (0.8-4.8) 04/05/23 03:24 Inyo # (Auto) 0.6 10^3/uL (0.2-0.9) 04/05/23 03:24 Eos # (Auto) 0.2 10^3/uL (0.0-0.8) 04/05/23 03:24 Baso # (Auto) 0.1 10^3/uL (0.0-0.1) 04/05/23 03:24 Nucleated RBC % (auto) 0 % 04/05/23 03:24 Nucleated RBCs # 0.0 /100WBC 04/05/23 03:24 Sodium 140 mmol/L (136-145) 04/05/23 03:24 Potassium 4.1 mmol/L (3.5-5.1) 04/05/23 03:24 Chloride 107 mmol/L (98-107) 04/05/23 03:24 Carbon Dioxide 23 mmol/L (22-29) 04/05/23 03:24 Anion Gap 14.1 (5-19) 04/05/23 03:24 BUN 10 mg/dL (6-20) 04/05/23 03:24 Creatinine 0.5 mg/dL (0.5-0.9) 04/05/23 03:24 GFR Calculation 127.6 mL/min (90-130) 04/05/23 03:24 Glucose 88 mg/dL (65-115) 04/05/23 03:24 Calculated Osmolality 288 mOsm/kg (285-295) 04/05/23 03:24 Calcium 8.5 mg/dL (8.5-10.5) 04/05/23 03:24 Vitals Last Vital Signs Temp 97.6 F 04/05/23 07:33 Pulse 75 04/05/23 07:33 Resp 16 04/05/23 07:33 BP 158/70 04/05/23 07:33 Pulse Ox 98 04/05/23 07:33 O2 Del Method Room Air 04/05/23 07:33 Discharge Plan Discharge Patient Disposition: Home Condition: Stable Prescriptions: New atorvastatin 40 mg Tablet 40 mg PO BEDTIME Qty: 90 3RF Brilinta 90 mg Tablet 90 mg PO BID Qty: 120 3RF Continued aspirin 81 mg tablet,delayed release (DR/EC) 81 mg PO QAM multivitamin Tablet 1 tab PO QAM nitroglycerin 0.4 mg tablet, sublingual 0.4 mg sublingual Q5M PRN (Reason: chest pain) Qty: 20 0RF Rx Instructions: do not exceed 3 doses per episode omeprazole 20 mg capsule,delayed release(DR/EC) 20 mg PO QAM (DME) pen needle, diabetic 33 gauge x 5/32 needle See Rx Instructions .ROUTE .MEDSUPPLY Qty: 100 5RF Rx Instructions: 1 time day acetaminophen 500 mg Tablet 1,000 mg PO Q6H PRN (Reason: Pain) fluoxetine 40 mg capsule 40 mg PO QAM Diovan 80 mg tablet 80 mg PO QAM Victoza 3-Tony 0.6 mg/0.1 mL (18 mg/3 mL) pen injector See Rx Instructions SUBCUT .COMPLEX Rx Instructions: inject 0.6mg subcutaneously once daily x 7 days; then 1.2mg daily for week, not to exceed 1.8mg/day Changed metoprolol tartrate 25 mg tablet 25 mg PO BID Qty: 90 3RF Discharge Orders: Discharge Order (Routine); Ordered 04/05/23 Ordered By: Pee Brock Referrals: Nohemy Wright FNP-C [Primary Care Provider] - 04/18/23 1:40 pm Pee Brock M.D [Physician] - 2 months (Your Dr. Brock follow up appointment will be scheduled while you are at your Caity Colby appointment. Thank you.) Ciaty Colby FNP [Nurse Practitioner] - 04/10/23 9:45 am Discharge Diet: Cardiac Discharge Activity: Increase activity as tolerated Patient Instructions: Metoprolol (By mouth) (Lopressor, Toprol XL), Atorvastatin (By mouth) (Lipitor), Ticagrelor (By mouth) (Brilinta), Coronary Angioplasty (DC), Opioid Safety, Post Angiogram Home Care Instructions Discharge Attestations Time Spent in Discharge Care*: greater than 30 min Quality Metrics Clinical Quality Measures [ No reported AMI, CVA or VTE this stay] Coding Level of Care Code Acute Code for Chg Fwd Diagnoses Unstable angina I20.0 Metabolic syndrome E88.81 Abnormal stress test R94.39 HTN (hypertension) I10 Hypertension type: essential hypertension
[2023-04-05 09:44] VITALS: BP 124/75; PULSE 75; RESP 16; O2SAT 97
== END 2023-04-05 10:15 | disposition home or self-care (01) | DRG 247 ==
PROVIDERS: Admitting Provider Internal Medicine; PCP Nurse Practitioner; Visit Provider Internal Medicine
PROC: 027034Z Dilation of Coronary Artery, One Artery with Drug-eluting Intraluminal Device, Percutaneous Approach (ICD-10-PCS; principal; 2023-04-04 10:00)
PROC: 027034Z Dilation of Coronary Artery, One Artery with Drug-eluting Intraluminal Device, Percutaneous Approach (ICD-10-PCS; 2023-04-04 10:00)
DX: I25.110 Atherosclerotic heart disease of native coronary artery with unstable angina pectoris (principal); I10 Essential (primary) hypertension; F17.210 Nicotine dependence, cigarettes, uncomplicated; Z79.82 Long term (current) use of aspirin; F41.9 Anxiety disorder, unspecified; F32.A Depression, unspecified; K21.9 Gastro-esophageal reflux disease without esophagitis; E66.9 Obesity, unspecified; Z68.32 Body mass index [BMI] 32.0-32.9, adult; Z82.49 Family history of ischemic heart disease and other diseases of the circulatory system
CPT/HCPCS: 36415; 80048; 85025; 85347; 92978; 93005; 93306; 93454; 93931; 99152; 99153; C1725; C1753; C1769; C1874; C1887; C1894; C9600; J1644; J2250; J3010; J3490; J7030; Q9967

== ENCOUNTER → 2023-11-27 15:44 | Outpatient (BNVA) | payer OTHER, SELFPAY | PROVIDERS: PCP Nurse Practitioner; Visit Provider Nurse Practitioner | DX: M25.562 Pain in left knee (principal); I10 Essential (primary) hypertension; E66.9 Obesity, unspecified; F41.9 Anxiety disorder, unspecified; K21.9 Gastro-esophageal reflux disease without esophagitis; R60.9 Edema, unspecified | CPT/HCPCS: 80053 ==

== ENCOUNTER 2023-12-10 08:40 | Outpatient (CLI) | payer OTHER, SELFPAY ==
--- NOTE | 2023-12-10 09:15 | US_ITS ---
WS: [id number] Complete ABDOMINAL ULTRASOUND HISTORY: R74.01 - Elevation of levels of liver transaminase levels COMPARISON: None available. Liver: 13.5 cm in length. Normal size liver and echogenicity. No bile duct dilatation or mass. Portal Vein: Normal hepatopetal flow with monophasic waveform. Gallbladder: Normally distended gallbladder with no stones or wall thickening. CBD: 0.4 cm Pancreas: Normal size and echogenicity. Right kidney: 11.6 cm x 5.6 x 6.1 cm. Cortex: 1.3 cm. Normal size and echogenicity. No hydronephrosis or mass. Left kidney: 10.4 cm x 5.2 cm x 6.0 cm. Cortex: 1.3 cm. Normal size and echogenicity. No hydronephrosis or mass. Spleen: Normal. Aorta and IVC: Unremarkable abdominal aorta and IVC. Impression: Normal complete abdomen ultrasound.
--- NOTE | 2023-12-10 09:30 | XR_ITS ---
WS: [id number] XR knee LT 3V* [id number] REASON FOR EXAM: M25.562 - Pain in left knee FINDINGS: No fracture or focal bone lesion. Moderate narrowing of the lateral knee joint space with moderate olson bchondral sclerosis and mild marginal osteophytosis. Patellofemoral joint space intact without significant narrowing. Mild subchondral sclerosis and osteo phytosis of the patella. Minimal narrowing of the medial knee joint space with mild subchondral sclerosis and mild marginal os teophytosis. IMPRESSION: Mild osteoarthritis of the left knee.
[2023-12-10 09:50] LABS: Hepatitis A Antibody IgM Non-Reactive (Nonreactive); Hepatitis B Core AB, Total Non-Reactive (Nonreactive); Hepatitis B Surface AB 602.2 (11.5-1000); Hepatitis B Surface Antigen Non-Reactive (Nonreactive); Hepatitis C Virus Antibody Non-Reactive (Nonreactive)
== END 2023-12-10 08:41 | disposition home or self-care (01) ==
LOC: RAD 08:40
PROVIDERS: PCP Nurse Practitioner; Visit Provider Nurse Practitioner
DX: R74.01 Elevation of levels of liver transaminase levels (principal); M17.12 Unilateral primary osteoarthritis, left knee
CPT/HCPCS: 36415; 73562; 76700; 86705; 86706; 86709; 86803; 87340

== ENCOUNTER → 2024-01-13 16:34 | Outpatient (BNVA) | payer OTHER, SELFPAY | PROVIDERS: PCP Nurse Practitioner; Visit Provider Nurse Practitioner | DX: I10 Essential (primary) hypertension | CPT/HCPCS: 80053 ==

== ENCOUNTER 2024-02-05 10:15 | Outpatient (CLI) | payer OTHER, SELFPAY ==
--- NOTE | 2024-02-05 10:21 | MM_ITS ---
WS: [id number] BILATERAL SCREENING DIGITAL TOMOSYNTHESIS MAMMOGRAM WITH CAD HISTORY: SCREENING COMPARISON: 12/10/2022 and 07/02/2019 Bilateral CC and MLO views with tomosynthesis and synthetic mammography submitted. Computer aided det ection analyzed. Breast composition: There are scattered areas of fibroglandular density. No suspicious masses, microc alcifications or architectural distortion. Benign lymph nodes in the upper outer quadrants of each br east. No suspicious calcification or mass. IMPRESSION: MM/[place] [id number] BI-RADS: 2-Benign FOLLOW UP: 1 Year Follow-up
== END 2024-02-05 10:16 | disposition home or self-care (01) ==
LOC: RAD 10:16
PROVIDERS: PCP Nurse Practitioner; Visit Provider Nurse Practitioner
DX: Z12.31 Encounter for screening mammogram for malignant neoplasm of breast (principal)
CPT/HCPCS: 77063; 77067

== ENCOUNTER → 2024-02-25 09:46 | Outpatient (BNVA) | payer OTHER, SELFPAY | PROVIDERS: PCP Nurse Practitioner; Visit Provider Student in an Organized Health Care Education/Training Program | DX: M17.12 Unilateral primary osteoarthritis, left knee (principal) | CPT/HCPCS: 73560; 73565 ==

== ENCOUNTER 2024-02-25 11:12 | Outpatient (CLI) | payer OTHER, SELFPAY | END 2024-02-25 11:13 | disposition home or self-care (01) | LOC: SPT 11:13 | PROVIDERS: PCP Nurse Practitioner; Visit Provider Student in an Organized Health Care Education/Training Program | DX: Z46.89 Encounter for fitting and adjustment of other specified devices (principal); M17.12 Unilateral primary osteoarthritis, left knee | CPT/HCPCS: 97760; L1851 ==

== ENCOUNTER → 2024-04-24 11:39 | Outpatient (BNVA) | payer OTHER, SELFPAY | PROVIDERS: PCP Nurse Practitioner; Visit Provider Physician Assistant | DX: M25.511 Pain in right shoulder (principal); M75.41 Impingement syndrome of right shoulder | CPT/HCPCS: 73030 ==

== ENCOUNTER 2024-04-28 07:48 | Outpatient (CLI) | payer OTHER, SELFPAY ==
--- NOTE | 2024-04-28 08:03 | ECG_ITS ---
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 Interpretive Statements NAME OF STUDY: LEXISCAN SESTAMIBI STRESS TEST INDICATION: Chest Pain, PROCEDURE: At the baseline, the EKG revealed normal sinus rhythm with a normal ST Ts. The baseline heart was 89 bpm with a blood pressue of 148/91 mm of Hg Lexiscan was infused over a period of 20 seconds. A total of 0.4 milligrams of Lexiscan was infused. The stress phase was continued for a total of 5 minutes. Heart rate at the end of the stress phase was 100 bpm with a blood pressure 137/79 mm of Hg. The EKG at the peak infusion revealed no significant changes. Sestamibi was injected 20 seconds after the Lexiscan infusion. Heart rate at the end of the recovery phase was 100 bpm with a blood pressure of 134/80 mm of Hg. CONCLUSION: 1. No significant EKG changes with the LexiScan infusion 2. No LexiScan induced chest pain or cardiac arrhythmia 3. Normal blood pressure and heart rate response 4. Sestamibi/sestamibi perfusion scan pending; see separate report. Electronically Signed On 05-02-2024 14:31:19 CDT by Gerald Pompa M.D. [email or web address]
--- NOTE | 2024-04-28 08:03 | NMCV_ITS ---
NM jhoan perf SPECT r/s* [id number] Miroslava Zhang Age: 58 Gender: F : 1965 Exam Date: 04/28/2024 08:03 Ordering Phys: Stephane Lama MD ([email or web address]) Technologist: BRITNI Ware Exam Location: [facility] Indications: SOB, CP STRESS TEST Please see separate stress test report in [facility] for full findings IMAGE PROTOCOL Rest/Stress 1 Lexiscan Day Radiopharmaceutical Dose (mCi) Administration Site Administered by Rest: Tc-99m 10.8 IV BRITNI Ware Sestamibi Stress:Tc-99m 32.4 IV BRITNI Ware Sestamibi Rest: 28-Apr-2024 60 Discovery 630 Stress: 28-Apr-2024 30 Discovery 630 0.4mg Lexiscan. Images obtained in supine and prone position. SPECT RESULTS Technical Quality: Good Raw Data Analysis: Normal Image Corrections: No attenuation or motion correction applied Summed Stress Score: 2 Summed Rest Score: 0 Summed Difference Score: 2 PERFUSION FINDINGS A small area of slightly decreased tracer uptake in the mid inferolateral and apical lateral region with reversibility. FUNCTIONAL RESULTS (calculated via Gated SPECT) Stress Image LV EF (%): 77 Stress EDV (mL):86 TID: 1.12 Stress ESV (mL):20 FUNCTIONAL FINDINGS: Segmental wall motion analysis revealing no gross wall motion abnormalities IMPRESSIONS 1. Myocardial perfusion imaging revealing small area of reversible defect involving the mid inferolateral and apical lateral region suggesting ischemia in the distribution of the left circumflex artery. 2. Normal LV ejection fraction 77%. 3. LV wall motion analysis revealing no gross wall motion abnormalities. 4. Normal LV volume Compared to the study from 03/26/2023, the ischemic burden seems to be very much diminished. Dr Gerald Pompa MD FAC (Electronically Signed) Final Date: 28 April 2024 11:48 S
[2024-04-28 08:10] VITALS: BMI 33.6
[2024-04-28] MEDS: regadenoson 0.4 Mg/5 ml Syringe 0.400000000000000022 MG IVP (09:50)
[2024-04-28 10:07] VITALS: BP 134/80; PULSE 98
== END 2024-04-28 07:49 | disposition home or self-care (01) ==
LOC: CDL 07:49
PROVIDERS: PCP Nurse Practitioner; Visit Provider Internal Medicine Cardiovascular Disease
DX: R94.39 Abnormal result of other cardiovascular function study (principal); R07.89 Other chest pain
CPT/HCPCS: 36415; 78452; 93017; 96375; A9500; J2785

== ENCOUNTER → 2024-06-26 08:24 | Outpatient (BNVA) | payer OTHER, SELFPAY | PROVIDERS: PCP Nurse Practitioner; Visit Provider Physician Assistant | DX: M17.12 Unilateral primary osteoarthritis, left knee; M25.561 Pain in right knee; M25.562 Pain in left knee | CPT/HCPCS: 73560; 73565 ==

== ENCOUNTER → 2024-06-29 10:48 | Outpatient (BNVA) | payer OTHER, SELFPAY | PROVIDERS: PCP Nurse Practitioner; Visit Provider Nurse Practitioner | DX: I10 Essential (primary) hypertension (principal); E55.9 Vitamin D deficiency, unspecified; F41.9 Anxiety disorder, unspecified | CPT/HCPCS: 80061; 82306; 82607; 83735; 84443 ==

== ENCOUNTER 2024-07-21 09:10 | Outpatient (CLI) | payer OTHER, SELFPAY ==
--- NOTE | 2024-07-21 09:30 | CT_ITS ---
WS: [id number] CT LEFT knee, noncontrast HISTORY: DJD LEFT KNEE TECHNIQUE: Protocol for [facility] total knee replacement has been obtained. This includes axial imaging th rough the LEFT hip, LEFT knee and LEFT ankle. DLP: 902.57 mGy.cm COMPARISON: Radiograph 06/26/2024 Pelvis: No bone destruction. No fractures. LEFT adnexal cyst 2.2 x 2.0 cm. Probably ovarian in etiolo gy. LEFT knee: No fracture or dislocation. Small osteophytes along the joint line. Very slight lateral olson bluxation of the patella. Moderate size suprapatellar joint effusion. LEFT ankle: Negative. CT/CT knee LT [facility] [id number] IMPRESSION: CT imaging provided for [facility] robotic total knee replacement.
[2024-07-21 09:56] LABS: Add Urine Microscopic? NO
[2024-07-21 09:57] LABS: Basophils # 0.1 10^3/uL (0.0-0.1); Basophils % 0.8 %; Eosinophils # 0.2 10^3/uL (0.0-0.8); Eosinophils % 2.3 %; Hematocrit 39.4 % (36-47); Lymphocytes # 2.5 10^3/uL (0.8-4.8); Mean Corpuscular HGB Conc 32.2 g/dL (30-55); Mean Corpuscular Hemoglobin 30.2 pg (27-33); Mean Corpuscular Volume 93.8 fl (85-98); Mean Platelet Volume 9.5 fL (7.4-10.4); Monocytes # 0.6 10^3/uL (0.2-0.9); Monocytes % 7.2 %; Neutrophils # 4.54 10^3/uL (1.8-7.7); Neutrophils % 57.3 %; Nucleated Red Blood Cells % 0 %; Platelet Count 263 10^3/cmm (157-399); Red Cell Distribution Width 13.1 % (12.1-15.1); White Blood Count 7.91 10^3/uL (3.29-11.43)
[2024-07-21 10:01] LABS: Bilirubin Urine Neg (Negative); Blood Urine Neg (Negative); Glucose Urine UA Norm (Normal); Ketones Urine Negative (Negative); Leukocyte Esterase Urine Negative (Negative); Nitrate Urine Negative (Negative); Protein Urine Neg (Negative); Urine Appearance Clear (CLEAR); Urine Color Yellow (Yellow); Urobilinogen Urine Norm (Negative); pH Urine 6 (5-7)
[2024-07-21 10:03] LABS: Charge for UA Resulting for Rev
[2024-07-21 10:15] LABS: Alanine Aminotransferase 15 U/L (0-33); Albumin Level 3.8 g/dL (3.5-5.2); Alkaline Phosphatase 111 U/L (35-105); Anion Gap 11.1 (5-19); Aspartate Amino Transferase 18 U/L (0-32); Blood Urea Nitrogen 10 mg/dL (6-20); Calcium 9.1 mg/dL (8.5-10.5); Carbon Dioxide 30 mmol/L (22-29); Chloride 107 mmol/L (98-107); Globulin 2.6 g/dL (1.3-4.6); Glomerular Filtration Rate 102.7 mL/min (90-130); Glucose 97 mg/dL (65-115); Osmolality Calculated 297 mOsm/kg (285-295); Potassium 4.1 mmol/L (3.5-5.1); Sodium 144 mmol/L (136-145); Total Bilirubin 0.2 mg/dL (0.15-1.2); Total Protein 6.4 g/dL (6.6-8.7)
== END 2024-07-21 09:11 | disposition home or self-care (01) ==
PROVIDERS: PCP Nurse Practitioner; Visit Provider Student in an Organized Health Care Education/Training Program
DX: M17.12 Unilateral primary osteoarthritis, left knee (principal); Z01.818 Encounter for other preprocedural examination; N28.1 Cyst of kidney, acquired; M25.762 Osteophyte, left knee
CPT/HCPCS: 36415; 73700; 80053; 81003; 85025

== ENCOUNTER → 2024-08-06 08:18 | Outpatient (BNVA) | payer OTHER, SELFPAY | PROVIDERS: PCP Nurse Practitioner; Visit Provider Physician Assistant | DX: M17.12 Unilateral primary osteoarthritis, left knee; M25.562 Pain in left knee; M25.561 Pain in right knee | CPT/HCPCS: 73560; 73565 ==

== ENCOUNTER 2024-08-18 10:19 | Outpatient (RCR) | payer OTHER, SELFPAY | END 2024-09-03 23:59 | disposition home or self-care (01) | LOC: SPT 10:19 | PROVIDERS: PCP Nurse Practitioner; Visit Provider Physician Assistant | DX: M17.12 Unilateral primary osteoarthritis, left knee (principal) | CPT/HCPCS: 97110; 97161; G0283 ==

== ENCOUNTER 2024-09-04 06:00 | Outpatient (RCR) | payer OTHER, SELFPAY | END 2024-09-18 23:59 | disposition home or self-care (01) | LOC: SPT 06:00 | PROVIDERS: PCP Nurse Practitioner; Visit Provider Physician Assistant | DX: M17.12 Unilateral primary osteoarthritis, left knee (principal) | CPT/HCPCS: 97110; G0283 ==

== ENCOUNTER 2024-10-05 14:51 | Outpatient (CLI) | payer OTHER, SELFPAY ==
--- NOTE | 2024-10-05 15:15 | USR_ITS ---
PROCEDURE INFORMATION: Exam: US Pelvis, Complete, Non-Obstetric Exam date and time: 10/05/2024 3:12 PM Age: 59 years old Clinical indication: Pelvic pain; Additional info: N94.9 - unspecified condition associated with female raya. . . TECHNIQUE: Imaging protocol: Transabdominal pelvic nonobstetric ultrasound. Complete exam. Real time ultrasound with image documentation. COMPARISON: US abdomen complete* [id number] 12/10/2023 9:13 AM FINDINGS: Uterus: Surgically absent. Right ovary/adnexa: Not well visualized. Correlation with surgical history is recommended. Left ovary/adnexa: The left ovary measures 4.4 x 2.3 x 3.6 cm. Flow is visualized. There is a 2.5 cm left-sided ovarian cyst. Intraperitoneal space: No significant free fluid. Urinary bladder: Sonographically unremarkable. US/US pelv w/transvag [id number] IMPRESSION: 1. Grossly simple appearing left-sided ovarian cyst measuring 2.5 cm. Follow-up pelvic sonography in 6-12 months and circulation man evaluation is recommended.
== END 2024-10-05 14:52 | disposition home or self-care (01) ==
LOC: RAD 14:51
PROVIDERS: PCP Nurse Practitioner; Visit Provider Nurse Practitioner
DX: N83.202 Unspecified ovarian cyst, left side (principal)
CPT/HCPCS: 76830; 76856

== ENCOUNTER → 2024-11-10 10:47 | Outpatient (BNVA) | payer OTHER, SELFPAY | PROVIDERS: PCP Nurse Practitioner; Visit Provider Physician Assistant | DX: M17.0 Bilateral primary osteoarthritis of knee; M25.562 Pain in left knee; Z01.818 Encounter for other preprocedural examination | CPT/HCPCS: 73560; 73565 ==

== ENCOUNTER 2024-12-02 08:14 | Outpatient (CLI) | payer OTHER, SELFPAY ==
--- NOTE | 2024-12-02 08:30 | CT_ITS ---
WS: [id number] CT LEFT KNEE, NONCONTRAST [facility] TECHNIQUE: Noncontrast CT of the LEFT knee to include the LEFT hip and ankle. CLINICAL INFORMATION: LEFT TOTAL KNEE ARTHROPLASTY SURGICAL PLANNING COMPARISON: 07/21/2024 DLP: 937.[address] scans at [facility] use at least one of these dose optimization techniques: automated e xposure control; mA and/or kV adjustment per patient size (includes targeted exams where dose is matc hed to clinical indication); or iterative reconstruction. FINDINGS: Advanced degenerative arthritis LEFT knee with hypertrophic changes along the joint line. Hypertrophi c patella with subchondral cystic change. Subchondral cystic changes in the lateral joint compartment with sclerosis. Small suprapatellar effusion. LEFT ovarian low-attenuation cyst similar to previous measuring 2.2 cm. . Surgical clips in the pelvis. Prior hysterectomy. CT/CT knee LT [facility] [id number] IMPRESSION: Images obtained for preoperative purposes.
== END 2024-12-02 08:15 | disposition home or self-care (01) ==
LOC: RAD 08:16
PROVIDERS: PCP Nurse Practitioner; Visit Provider Physician Assistant
DX: M17.12 Unilateral primary osteoarthritis, left knee (principal); R93.6 Abnormal findings on diagnostic imaging of limbs; Z98.890 Other specified postprocedural states
CPT/HCPCS: 73700

== ENCOUNTER → 2024-12-03 15:17 | Outpatient (BNVA) | payer OTHER, SELFPAY | PROVIDERS: PCP Nurse Practitioner; Visit Provider Physician Assistant | DX: Z01.818 Encounter for other preprocedural examination (principal) | CPT/HCPCS: 36415; 80053; 81001; 85025 ==

== ENCOUNTER → 2024-12-07 11:18 | Outpatient (BNVA) | payer OTHER, SELFPAY | PROVIDERS: PCP Nurse Practitioner; Visit Provider Family Medicine | DX: Z01.818 Encounter for other preprocedural examination (principal); R94.31 Abnormal electrocardiogram [ECG] [EKG] | CPT/HCPCS: 93005 ==

== ENCOUNTER 2024-12-14 12:57 | Observation (INO) | payer OTHER, SELFPAY ==
[2024-12-14] VITALS (16 sets, daily range): BP systolic 97–142; BP diastolic 46–94; PULSE 70–91; RESP 14–22; TEMP 36.3–36.9; O2SAT 94–100; BMI 15.0
[2024-12-14] MEDS: sodium chloride 0.9% 1,000 ML 30 ML IV (09:02)
[2024-12-14 09:05] LABS: Basophils # 0.1 10^3/uL (0.0-0.1); Basophils % 0.6 %; Eosinophils # 0.2 10^3/uL (0.0-0.8); Eosinophils % 1.8 %; Hematocrit 37.8 % (36-47); Lymphocytes # 2.8 10^3/uL (0.8-4.8); Lymphocytes % 33.2 %; Mean Corpuscular HGB Conc 32.8 g/dL (30-55); Mean Corpuscular Hemoglobin 29.2 pg (27-33); Mean Corpuscular Volume 88.9 fl (85-98); Mean Platelet Volume 9.9 fL (7.4-10.4); Monocytes # 0.8 10^3/uL (0.2-0.9); Monocytes % 9.3 %; Neutrophils # 4.54 10^3/uL (1.8-7.7); Neutrophils % 54.7 %; Nucleated Red Blood Cells % 0 %; Platelet Count 320 10^3/cmm (157-399); Red Blood Count 4.25 10^6/uL (3.85-5.65); Red Cell Distribution Width 13.6 % (12.1-15.1); White Blood Count 8.29 10^3/uL (3.29-11.43)
[2024-12-14] MEDS: ketorolac 30 mg/mL INJ IVP (09:05)
[2024-12-14] MEDS: scopolamine 1 mg PATCH 1 PATCH TRANSDERMA (09:06)
[2024-12-14] MEDS: acetaminophen 1,000 MG/100 ML PIGGYBACK 400 MG IV ×3 (09:16→20:49)
[2024-12-14 09:23] LABS: Anion Gap 12.2 (5-19); Blood Urea Nitrogen 11 mg/dL (6-20); Calcium 9.3 mg/dL (8.5-10.5); Carbon Dioxide 28 mmol/L (22-29); Chloride 108 mmol/L (98-107); Creatinine Clr Calc Pharmacy 79.0379; Glomerular Filtration Rate 126.7 mL/min (90-130); Glucose 108 mg/dL (65-115); Osmolality Calculated 298 mOsm/kg (285-295); Potassium 4.2 mmol/L (3.5-5.1); Sodium 144 mmol/L (136-145)
--- NOTE | 2024-12-14 09:36 | ANES.PREANE2 ---
Pre-Anesthetic Assessment Height/Weight: Height 5 ft 5 in Weight 90 lb Temp Pulse Resp BP Pulse Ox O2 Del Method 97.9 F 79 18 132/86 96 Room Air 12/14/24 08:32 12/14/24 08:32 12/14/24 08:32 12/14/24 09:06 12/14/24 08:32 12/14/24 08:40 Preop Diagnosis: Knee arthritis Operation Date: 12/14/24 10:10 Proposed Procedures p Evaristo Robot Total Knee Arthroplasty(Left) - Daniel Jack, DO Was Beta Myrtle taken within 24 hours: Yes Was Clonidine taken within 24 hours: N/A Last intake: Intake Last Liquid Date 12/13/24 Last Liquid Time 23:40 Last Solid Date 12/13/24 Last Solid Time 23:40 Social No alcohol and No tobacco Exam alert, oriented x 3, clear to auscultation bilaterally and regular rate & rhythm Airway Submandibular: within normal limits Cervical ROM: within normal limits Mallampati: Class I Dentition: false Comments: Comments: missing multiple bottom teeth Anesthetic Plan ASA status: 3 Anesthesia: MAC and Regional (specify below) Other: No prior issues with anesthesia NPO since yesterday Patient has a history of hypertension on valsartan CAD, NEENA placed 1-1/2 years ago. On chronic Plavix. Taken 12/07/2024 Type 2 diabetes on liraglutide. Last taken 12/04/2024 GERD on Protonix Labs 12/14/2024 reviewed and acceptable for procedure Prior echo showing EF 55 to 60% Recent EKG showing sinus rhythm with short TN interval Plan for spinal anesthetic with post induction nerve block Medications/Allergies Home Medications ?Medication ?Instructions ?Recorded ?Confirmed ?Last Taken ?Type aspirin 81 mg tablet,delayed 81 mg PO QAM 01/09/21 12/11/24 12/07/24 History release multivitamin 1 tab PO QAM 01/09/21 12/11/24 12/11/24 History acetaminophen 500 mg tablet 1,000 mg PO Q6H PRN Pain 04/04/23 12/11/24 Unknown History albuterol sulfate 90 mcg/actuation 2 puff inhalation Q6H PRN 08/29/23 12/11/24 Unknown Rx aerosol inhaler shortness of breath or wheezing #8.5 grams Left Knee (lateral) Pulmonary Function Technologist Brace #1 ea 02/25/24 12/03/24 Unknown Rx atorvastatin 40 mg tablet See Rx Instructions .Route 03/26/24 12/11/24 12/11/24 Rx .COMPLEX #90 tabs epinephrine 0.3 mg/0.3 mL 0.3 mg (0.3 mL) IM ONCE PRN 04/17/24 12/11/24 Unknown Rx injection, auto-injector (EpiPen) anaphylaxis #1 ea nitroglycerin 0.4 mg sublingual 0.4 mg sublingual Q5M PRN chest 04/28/24 12/11/24 Unknown Rx tablet pain #20 tabs furosemide 20 mg tablet (Lasix) 20 mg PO QAM #90 tabs 09/15/24 12/11/24 12/11/24 Rx pantoprazole 20 mg tablet,delayed 20 mg PO DAILY #90 tabs 09/15/24 12/11/24 12/11/24 Rx release (Protonix) valsartan 80 mg tablet (Diovan) 80 mg PO QAM #90 tabs 09/15/24 12/14/24 12/13/24 Rx clopidogrel 75 mg tablet (Plavix) 75 mg PO DIRECTED #180 tabs 10/19/24 12/11/24 12/07/24 Rx buspirone 15 mg tablet 15 mg PO TID PRN anxiety #90 tabs 11/24/24 12/11/24 12/11/24 Rx celecoxib 200 mg capsule (Celebrex) 200 mg PO BID #60 caps 11/24/24 12/11/24 12/07/24 Rx desvenlafaxine succinate 100 mg 100 mg PO DAILY #30 tabs 11/24/24 12/11/24 12/11/24 Rx tablet,extended release 24 hr (Pristiq) liraglutide 0.6 mg/0.1 mL (18 mg/3 1.8 mg (0.3 mL) SUBCUT DAILY #9 mL 11/24/24 12/11/24 12/04/24 Rx mL) subcutaneous pen injector (Victoza 3-Tony) metoprolol tartrate 25 mg tablet 25 mg PO BID 12/10/24 12/11/24 12/14/24 History Allergies Allergy/AdvReac Type Severity Reaction Status Date / Time bee venom protein (honey bee) Allergy Severe ALGY-Anaphy Verified 12/11/24 12:43 laxis Current Medications Generic Name Dose Route Start Last Admin Trade Name Freq PRN Reason Stop Dose Admin Sodium Chloride 1,000 mls @ 30 mls/hr 12/14/24 08:15 12/14/24 09:02 Sodium Chloride 0.9% IV 12/15/24 08:14 30 mls/hr .Q24H ROSITA Administration PFSH Anesthesia Medical History Atherosclerosis of coronary artery Unstable angina Obesity (BMI 30-39.9) Abnormal stress test HTN (hypertension) Anxiety GERD (gastroesophageal reflux disease) Depression History of fracture of right ankle Surgical History History of heart artery stent 04/04/23 LAD at [facility] Hx of hysterectomy Hx of tonsillectomy Family History Brother CAD (coronary artery disease), Onset Age: 29 Stented coronary artery x8 Family history of premature coronary artery disease Cancer Mother Stented coronary artery CAD (coronary artery disease), Onset Age: 45 Cancer colon Father CAD (coronary artery disease), Onset Age: 43 Stented coronary artery Family history of CABG Other Diabetes Denies family history of Stroke Social History Smoking and tobacco/nicotine status: current every day tobacco/nicotine user cigarettes Packs smoked per day: 0.25 Second hand smoke exposure: No Alcohol intake: unknown Substance/Drug Use: unknown Adopted: No Caregiver/support person: No Lives independently: Yes Household members: none Housing: House Marital status: Single Number of children: 2 service: No Current occupational status: employed 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 [employer] Pets and animals: Yes Pets & animals: dog(s) Do you think of yourself as: Straight/Heterosexual Current gender identity: Female Data Anesthesia 12/14/24 08:53 12/14/24 08:53 Short CBC 12/14/24 Range/Units 08:53 WBC 8.29 (3.29-11.43) 10^3/uL Hgb 12.40 (11.27-16.99) g/dL Hct 37.8 (36-47) % MCV 88.9 (85-98) fl Plt Count 320 (157-399) 10^3/cmm Neut % (Auto) 54.7 % Neut # (Auto) 4.54 (1.8-7.7) 10^3/uL BMP 12/14/24 08:53 Sodium 144 Potassium 4.2 Chloride 108 H Carbon Dioxide 28 BUN 11 Creatinine 0.5 Glucose 108 Calcium 9.3 Cardiac Studies: Echocardiogram 04/04/23 Sestamibi Stress Test (Cardiology) 04/28/24 Cardiac Event Monitor 01/17/21
--- NOTE | 2024-12-14 09:42 | W.PM.OPSUD ---
Surgery/Procedure H&P Update DATE OF PROCEDURE: December 14, 2024 DATE H&P PERFORMED: 12/03/24 H&P UPDATE INFORMATION: I have reviewed H&P completed within last 30 days, I have examined patient prior to procedure and No changes to prior documentation PREOP DIAGNOSIS: Left knee arthritis PRIMARY INDICATION FOR PROCEDURE: Left knee degenerative joint disease PLANNED PROCEDURE: Operation Date: 12/14/24 10:10 Proposed Procedures p Evaristo Robot Total Knee Arthroplasty(Left) - Daniel Jack DO
[2024-12-14] MEDS: midazolam 1 mg/mL INJ 2 mL 2 MG IVP (09:46)
[2024-12-14] MEDS: ceFAZolin 2,000 MG in sodium chloride 0.9% (plus) 50 ML 100 MG IV ×2 (10:01→17:15)
--- NOTE | 2024-12-14 10:18 | ANES.PROC ---
Anesthesia Procedures Procedure/Date: 12/14/24 Nerve Block ^: Nerve Block 1: Main Anesthesia: spinal anesthesia block Time Out Performed: Yes Consent: requested by attending/covering physician and from patient Nerve block location: adductor canal Anesthesia monitors applied: pulse oximetry, EKG, BP cuff and oxygen Nerve block position: supine Anesthetic Used: ropivicaine 0.5% Amount of anesthesia used (mL): 15 Ultrasound used to: recognize landmarks Nerve Stimulator Used?: No Interscalene/Femoral BLK: other needle (pjunk 4inch) and visualize local anesthetic spread Injection: neg aspiration of heme Patient Tolerated Procedure: well Complications: none
[2024-12-14] MEDS: EPINEPHrine 1 mg/mL INJ XX (11:03)
[2024-12-14] MEDS: ketorolac 30 mg/mL INJ XX (11:03)
[2024-12-14] MEDS: ROPivacaine 0.2% Premix 100 mL 200 MG INTRA-ARTI (11:03)
[2024-12-14] MEDS: VANCOMYCIN ADD-Vantage 1,000 MG VIAL 1000 MG XX (11:04)
--- NOTE | 2024-12-14 12:02 | P.OP_ITS ---
Operative Report Date of procedure: December 14, 2024 Surgeon: Daniel Jack DO Access Coordinator: Darryl Jack PA-C: PA was necessary for assistance in this case with leg positioning retraction and protection of neurovascular structures as well as assistance in implantation wound closure and dressing application. Procedure: Preoperative diagnosis: Left knee degenerative joint disease Post-op diagnosis: Same Procedure done: Left total knee arthroplasty, cemented?robotic assisted Evaristo Implants: [place] triathlon size 4 femur CR cemented?left [place] triathlon size? 4 tibia universal baseplate cemented [place] triathlon symmetric patella size 29 mm Jasson triathlon polyethylene 9mm Surgeon: Daniel Jack DO Estimated blood?loss: 25 mL Tourniquet 59minutes IV fluids: 1200 mL Urine output: 100 mL Complications: None Condition: stable Disposition: floor Brief History: Patient is a 59-year-old female with with chronic?left knee degenerative joint disease.? Patient has been worked up in the outpatient setting in the orthopedic office at this point time through shared decision making given? [id number] arthritis as well as failed conservative treatment, and pt would?like to proceed with a?left total knee arthroplasty.? Through shared decision making elected to proceed with surgical intervention for?left total knee arthroplasty Evaristo robotic assisted.? We talked about continued conservative treatment and surgical intervention as far as the risk benefits complications alternatives surgical and nonsurgical treatment options.? At this point time understanding patient risks with surgery he agrees to proceed with surgical intervention.? Once again? risk with surgery include but are not?limited to make it better make it worse blood clot, heart attack, stroke, on the table, infection, injury to nerves or vessels, persistent pain, arthrofibrosis, implant failure.? Understanding these risks patient agrees to proceed with surgical intervention consent was obtained.? All questions answered. Procedure: Patient was seen and evaluated in the preoperative holding area.? Consent was reviewed and signed with patient with plan for?left total knee arthroplasty.? All questions answered.? Correct extremity marked.? Patient seen and evaluated by the anesthesia department and once cleared for surgery was taken back to the operative suite.? Patient was placed into a supine position on the OR table.? All bony prominences were well-padded.? Patient was appropriately secured to the bed.? Patient underwent anesthesia per the anesthesia department.? Patient received spinal anesthesia and? Marquez catheter was placed.? A nonsterile tourniquet was applied to the?left thigh.? At this point in time a final timeout performed.? Patient received appropriate preoperative antibiotics. Next the?left?lower extremity was then prepped and draped in standard orthopedic fashion. Esmarch tourniquet was used exsanguinate the?left?lower extremity.? Tourniquet was insufflated to 250 mmHg. A standard anterior incision was made over midline of the knee.? Sharp scalpel excision through skin and subcutaneous tissue full-thickness skin flaps were made.? Fascia was elevated off of the extensor retinaculum was stable with medial parapatellar arthrotomy was then made.? The performed standard sequential releases..? Immediately on entry into the joint patient was found to have severe eburnated bone and tricompartmental arthritic changes noted.? With significant osteophyte formation.? Next the the patella was then stuffed and the knee was then flexed.?? Kasandra was placed superiorly around the anterior aspect of the femur this was freed of synovium and I subsequently then placed by 2 femur pins to establish my femur arrays for the Evaristo robot.? These were then placed bicortically and? femur array was then appropriately secured with appropriate visualization.? Next attention was turned towards the tibial rays.? These were then drilled sequ entially bicortically in parallel fashion and intraincisional.? I then placed my guide as well as my tibial array on in place.? This was appropriately secured and had excellent visualization with the Evaristo robot.? Next the tibial checkpoint as well as femur checkpoint were then placed.? At this point time I then subsequently established my head center as well as my medial?lateral malleoli as well as my checkpoints.? Next utilizing standard Evaristo technology I then mapped out the appropriate points and confirmation points around the femur as well as the tibia in standard fashion.? Once this was then done I then removed all osteophytes in preparation for dynamic testing.? All osteophytes were removed as well as I removed the ACL and the PCL was excised due to its significant tearing and degeneration noted.? At this point time the knee was brought into full extension and we performed our standard evaluation of our gap balancing stressing his?ligaments and extension as well as flexion appro priate adjustments were made to have appropriate gap balancing in both flexion and extension.? This plan for final cuts. Patient had a valgus deformity we corrected the deformity to the combination of patient's ligamentous balancing. We get a preoperative plan evaluating our implants which was a size 4 femur and a size 4 tibia.? Next we brought in the Evaristo robot and sequentially made our femur cuts.? All excess bony cuts were then removed.? Finally we made our tibial cut.? Once this was done a standard PCL retractor was then placed into this position I excised the medial and?lateral meniscus.? The tibial cut was then subsequently removed all excess bony debris was removed.? I then utilized a?lamina land checker and remove the posterior osteophytes.? At this point time sized the tibia and c onfirmed this was a size 4.? I utilized our blunt probe to establish rotation of tibial implant.? Once this was done I then placed my tibia size 4 trial in appropriate position and then subsequently placed tibial pins to hold this into place, trialed up to a size 9 mm poly as well as a size 4 femur which was appropriately impacted in place knee was then subsequently brought into extension. Trials were then assessed,? this was stable with varus valgus stress in extension as well as had symmetrical translation when brought into flexion demonstrating symmetrical gaps. I had excellent balance gaps in flexion and extension with varus and valgus stresses.? At this point I was satisfied with these implants these were then verified and opened on the back table size 4 tibia, size 4 femur,? size 9 mm polythickness.? We did confirm appropriate gap balancing and stresses as well as alignment utilizing? Evaristo and were satisfied with this plan.? ?At this point time with my trials in place I then towel clip the patella everted this made appropriate measurements subsequently utilizing freehand technique performed by patellar resurfacing this was confirmed to be appropriate resection and subsequently sized to be a 29 mm symmetric.? My drill peg guides were then clamped and appropriate position and appropriate position in the patella for appropriate tracking and parallel with the joint.? Pegs were drilled trial implant was placed and the knee was then subsequently ranged and found to have excellent patellar tracking.? Femur pegs were then drilled.? ? All checkpoints as well as guidepins and arrays were removed and appropriate counts made.? Satisfied with our tibial placement rotation I then utilized the keel punch and prepped the tibia.? At this point time all of our trial implants were removed. The wound bed? was thoroughly irrigated and dried and prepped for cementation.? Cement was mixed on the back table.? Once cement was ready this was then covered onto the tibia and the tibial baseplate was then impacted and all excess cement was removed.? Next the polyethylene was then impacted into place on the tibial baseplate.? Next cement was placed onto the femur as well as under the femur implants and impacted in to place and all excess cement was extruded and removed.? Knee was taken into full extension? to clear all excess cement was removed.? Warm saline was placed over the joint.? I then towel clip patella and dried for cementation. cemented the patella into place.? This was all clamped and the cement was allowed to cure.? Thorough irrigation performed with pulse?lavage.? I then placed my periarticular injection while the cement was curing.? Once cured the knee was taken through range of motion and had excellent stability and gaps were balanced in flexion and extension.? Tourniquet was then deflated. hemostasis satisfactory with electrocautery.? Vancomycin powder was placed inside the wound bed for antibiotic infection prophylaxis. next I then subsequently closed the capsule with Ethibond suture as well as a running strata fix suture.? Knee was then taken through range of motion 20 times.? Next the skin was then closed in?layered fashion of running stratifix sutures of deep and subcutenous tissue and skin.? ?closed in flexion and Prineo glue was then placed over the incision this allowed to cure.? Incision was covered with adriana incisional VAC dressing, with ABDs soft roll and Kurt wrap.? Patient was then awakened from anesthesia and taken to PACU in stable condition. Disposition: Patient taken to PACU in stable condition will be admitted to the floor for pain control PT/OT weight-bear as tolerated?left?lower extremity dressing changes as needed, DVT prophylaxis. Pain control. Patient will receive appropriate postoperative antibiotics. patient will be seen today by the internal medicine team for medical management.? Patient will follow up with the office in 2 weeks.? Patient understands agrees with current plan.? All questions answered.
--- NOTE | 2024-12-14 12:02 | W.PM.BPON ---
Date of Procedure: 12/14/2024 Surgeon: Daniel Jack DO Hedis Review Nurse(s): Darryl aJck PA-C Procedure(s) performed: Left total knee arthroplasty?Evaristo robotic assisted Findings of the procedure(s): Left knee degenerative joint disease underwent procedure as planned without issues or complication taken back to PACU stable condition. Estimated blood loss: 25 mL Specimen(s) removed: Tibia femur and patellar bone cuts removed Post-operative diagnosis: Left knee DJD
--- NOTE | 2024-12-14 12:10 | XR_ITS ---
WS: [id number] XR knee LT -2V [id number] REASON FOR EXAM: post L TKA FINDINGS: Total left knee arthroplasty. The components of the arthroplasty are intact and in proper position and alignment. No focal bone abnormality. XR/XR knee [place] - [id number] IMPRESSION: Total left knee arthroplasty without abnormality.
--- NOTE | 2024-12-14 12:33 | PM.PACU ---
PACU note Narrative: Patient is a 59-year-old female just underwent a left total knee arthroplasty. Pt transferred to PACU in stable condition. Dressing is dry. pt is awake and alert. pt can wiggle toes and plantarflex and dorsiflex foot. pt able to perform straight leg raise, Femoral nerve intact. Distal pulses are palpable toes are warm and well-perfused. Cap refill is normal and under 2 seconds. Unable to sensation due to residual spinal block. Pain is controlled. Exam: awake Disposition: admitted
--- NOTE | 2024-12-14 12:34 | PM.CONSULT ---
Providers/Reason For Consult Consulting Physician/Specialty*: Hospitalist Reason for Consult*: Medical management Attending Physician: Daniel Jack DO Primary Care Provider: VINCE Lucero History of Present Illness History of Present Illness Very pleasant 59-year-old lady with history of left knee degenerative joint disease, underwent TKA with orthopedic surgery, and an uneventful procedure with 25 mL estimated blood loss, received 1200 mL of fluids. She is awake and alert after the procedure. She denies chest pain or pressure. No trouble breathing. She has history of coronary disease with prior stenting back in April 2023. She is on aspirin and Plavix currently at home. Review of Systems Const: Denies: fever(s), chills, body aches or malaise ENMT: Denies: throat pain Card: Denies: chest pain, edema, pre-syncope or dyspnea on exertion Resp: Denies: dyspnea, productive cough, change in phlegm color or hemoptysis GI: Denies: abdominal pain, nausea, vomiting, diarrhea, constipation, hematochezia or melena : Denies: flank pain, urinary frequency or hematuria Musc: Denies: back pain, joint swelling or joint redness Skin/Breast: Denies: rash or new lesions Neuro: Denies: headache(s) or confusion Medications/Allergies Home Medications ?Medication ?Instructions ?Recorded ?Confirmed ?Last Taken ?Type aspirin 81 mg tablet,delayed 81 mg PO QAM 01/09/21 12/11/24 12/07/24 History release multivitamin 1 tab PO QAM 01/09/21 12/11/24 12/11/24 History acetaminophen 500 mg tablet 1,000 mg PO Q6H PRN Pain 04/04/23 12/11/24 Unknown History albuterol sulfate 90 mcg/actuation 2 puff inhalation Q6H PRN 08/29/23 12/11/24 Unknown Rx aerosol inhaler shortness of breath or wheezing #8.5 grams Left Knee (lateral) 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 #1 ea 02/25/24 12/03/24 Unknown Rx atorvastatin 40 mg tablet See Rx Instructions .Route 03/26/24 12/11/24 12/11/24 Rx .COMPLEX #90 tabs epinephrine 0.3 mg/0.3 mL 0.3 mg (0.3 mL) IM ONCE PRN 04/17/24 12/11/24 Unknown Rx injection, auto-injector (EpiPen) anaphylaxis #1 ea nitroglycerin 0.4 mg sublingual 0.4 mg sublingual Q5M PRN chest 04/28/24 12/11/24 Unknown Rx tablet pain #20 tabs furosemide 20 mg tablet (Lasix) 20 mg PO QAM #90 tabs 09/15/24 12/11/24 12/11/24 Rx pantoprazole 20 mg tablet,delayed 20 mg PO DAILY #90 tabs 09/15/24 12/11/24 12/11/24 Rx release (Protonix) valsartan 80 mg tablet (Diovan) 80 mg PO QAM #90 tabs 09/15/24 12/14/24 12/13/24 Rx clopidogrel 75 mg tablet (Plavix) 75 mg PO DIRECTED #180 tabs 10/19/24 12/11/24 12/07/24 Rx buspirone 15 mg tablet 15 mg PO TID PRN anxiety #90 tabs 11/24/24 12/11/24 12/11/24 Rx celecoxib 200 mg capsule (Celebrex) 200 mg PO BID #60 caps 11/24/24 12/11/24 12/07/24 Rx desvenlafaxine succinate 100 mg 100 mg PO DAILY #30 tabs 11/24/24 12/11/24 12/11/24 Rx tablet,extended release 24 hr (Pristiq) liraglutide 0.6 mg/0.1 mL (18 mg/3 1.8 mg (0.3 mL) SUBCUT DAILY #9 mL 11/24/24 12/11/24 12/04/24 Rx mL) subcutaneous pen injector (Victoza 3-Tony) metoprolol tartrate 25 mg tablet 25 mg PO BID 12/10/24 12/11/24 12/14/24 History Allergies Allergy/AdvReac Type Severity Reaction Status Date / Time bee venom protein (honey bee) Allergy Severe ALGY-Anaphy Verified 12/11/24 12:43 laxis Current Medications Generic Name Dose Route Start Last Admin Trade Name Freq PRN Reason Stop Dose Admin Sodium Chloride 1,000 mls @ 30 mls/hr 12/14/24 08:15 12/14/24 11:17 Sodium Chloride 0.9% IV 12/15/24 08:14 Infused .Q24H ROSITA Infusion Midazolam HCl 2 mg 12/14/24 08:15 12/14/24 09:46 Midazolam 1 Mg/Ml Inj 2 Ml IVP 2 mg Q5M PRN Administration Preop Anxiety PFSH Acute PFSH: Medical History Atherosclerosis of coronary artery Unstable angina Obesity (BMI 30-39.9) Abnormal stress test HTN (hypertension) Anxiety GERD (gastroesophageal reflux disease) Depression History of fracture of right ankle Surgical History History of heart artery stent 04/04/23 LAD at [facility] Hx of hysterectomy Hx of tonsillectomy Family History Brother CAD (coronary artery disease), Onset Age: 29 Stented coronary artery x8 Family history of premature coronary artery disease Cancer Mother Stented coronary artery CAD (coronary artery disease), Onset Age: 45 Cancer colon Father CAD (coronary artery disease), Onset Age: 43 Stented coronary artery Family history of CABG Other Diabetes Denies family history of Stroke Social History Smoking and tobacco/nicotine status: current every day tobacco/nicotine user cigarettes Packs smoked per day: 0.25 Second hand smoke exposure: No Alcohol intake: unknown Substance/Drug Use: unknown Adopted: No Caregiver/support person: No Lives independently: Yes Household members: none Housing: House Marital status: Single Number of children: 2 service: No Current occupational status: employed 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 [employer] Pets and animals: Yes Pets & animals: dog(s) Do you think of yourself as: Straight/Heterosexual Current gender identity: Female Vitals/I&O/Wt Last Vital Signs Temp 97.6 F 12/14/24 12:29 Pulse 78 12/14/24 12:29 Resp 20 H 12/14/24 12:29 BP 109/46 12/14/24 12:29 Pulse Ox 95 12/14/24 12:29 O2 Del Method Room Air 12/14/24 12:29 O2 Flow Rate 8 12/14/24 12:14 12/13/24 12/14/24 12/14/24 22:59 06:59 14:59 Intake Total 1400 / 1400 Output Total 125 / 125 Balance 1275 / 1275 Weight last 48 hrs Weight 40.823 kg Physical Exam Const: COMMON NORMALS: patient oriented x3 and alert GENERAL APPEARANCE: cooperative ORIENTATION/CONSCIOUSNESS: Yes awake HENMT: COMMON NORMALS: oropharynx normal Neck/C-Spine: COMMON NORMALS: no JVD Resp: COMMON NORMALS: normal respiratory effort and clear to auscultation bilaterally AUSCULTATION: clear to auscultation bilaterally Cardio: COMMON NORMALS: no JVD, regular rhythm, S1 normal heart sound present, S2 normal heart sound present and No murmurs present (Cardio) RHYTHM: regular rhythm HEART SOUNDS: S1 normal heart sound present and S2 normal heart sound present GI: COMMON NORMALS: Normal to inspection, nondistended, normoactive bowel sounds present, Soft to palpation and non-tender PALPATION: Yes Soft to palpation Extremity: COMMON NORMALS: no joint enlargement and no pedal edema OTHER: Left knee postoperative dressing. Cool pack. Neuro: COMMON NORMALS: patient oriented x3 and moves all extremities SENSORIUM/ORIENTATION: Yes alert Skin: COMMON NORMALS: no rashes or lesions noted GENERAL SKIN EXAM: no rashes or lesions noted Urinary Catheter Management: Marquez: Cath Placed During This Visit: yes Urinary Catheter Date of Insertion: 12/14/24 Urinary Catheter Time of Insertion: 10:20 Data 12/14/24 08:53 12/14/24 08:53 A&P Assessment and plan (1) Status post total knee replacement: Discussed with orthopedic surgeon, orthopedic note. Discussed with her horse race starter. Reviewed vitals, CBC, BMP, knee x-ray. Continued care as per orthopedic surgery. As per discussion orthopedic surgery, plans for anticoagulation due to increased VTE risk after orthopedic surgery, anticoagulation with Eliquis, confirmed with her horse race starter, discussed previously on aspirin, Plavix, okay to drop aspirin at current time, continue Plavix with Eliquis prophylaxis. Monitor for risk of bleeding after surgery. So far minimal blood loss. Repeat CBC. Consider avoiding NSAIDs if possible long-term with prior CAD, increased risk of LA, CVA. Incentive spirometer is added, discussed with her. Pending PT assessment. Oral diet has been resumed, maintaining blood pressure. Will stop further IV fluid. Monitor for risk of fluid overload. DC Marquez once mobilizing. Oxycodone as needed for moderate pain. IV Dilaudid as needed for severe pain. Consider minimizing NSAIDs, tramadol. Pending PT assessment, post discharge planning likely home with home health depending on assessment. (2) CAD (coronary artery disease): As per above discussion with her horse race starter, okay to stop aspirin, continue Plavix, Eliquis for VTE prophylaxis. Resume metoprolol, atorvastatin. Hold off losartan for now. Monitor blood pressure. Plan HTN: Monitor blood pressures. DC IV fluids. Hold valsartan for now. Reassess pressures. GERD: Continue PPI. PDMP PDMP Reviewed: Not Reviewed Consult Attestations Medical Necessity Statement: Continue hospitalization for left knee TKA in a lady with underlying CAD, additional comorbidities. and High MDM includes amount and/or complexity of data reviewed/ordered [ previous or external records, resulted lab(s)/test(s), ordered lab(s)/test(s) and other healthcare professional discussion] and described risk of complication, morbidity or mortality of management as documented Diagnoses Status post total knee replacement Z96.659 CAD (coronary artery disease) I25.10
--- NOTE | 2024-12-14 12:42 | PC.NURSE ---
1237 - accepted into OB 12 with MIKEY Wilks at side - no distress noted to pt upon this nursing leaving room - BP 97/57 - 02 95%- pulse 73 - temp 97.7
--- NOTE | 2024-12-14 13:00 | ANE.PACU2 ---
Inpatient post-anesthesia follow up: Airway intact: Yes Vital signs: Temperature 97.6 F Pulse Rate 78 Respiratory Rate 20 Blood Pressure 109/46 Pulse Oximetry 95 Oxygen Delivery Me thod Room Air Oxygen Flow Rate 8 Fraction of Inspir ed Oxygen Hydration adequate: Yes Nausea and vomiting: No Pain level: 2 Mental status: Baseline
[2024-12-14] MEDS: lactated ringers 1,000 ML 75 ML IV (13:34)
[2024-12-14] MEDS: chlorhexidine gluconate 0.12% Btl 473 mL 30 ML MUCOUS MEM ×3 (13:34→20:33)
[2024-12-14] MEDS: oxyCODONE 5 mg IR Tab/Cap PO ×2 (15:16→20:49)
[2024-12-14] MEDS: ketorolac 30 mg/mL INJ 15 MG IVP (15:16)
[2024-12-14] MEDS: mupirocin oint 22 gm 1 APPLIC NASAL (17:15)
[2024-12-14] MEDS: docusate sodium 100 mg Capsule PO (17:16)
[2024-12-14] MEDS: iron polysaccharide complex 150 mg Capsule PO (17:16)
[2024-12-14] MEDS: metoprolol tartrate 25 mg Tablet PO (17:17)
[2024-12-14] MEDS: calcium carb-vit d 600mg/400unit 1 Tablet 1 EACH PO (17:17)
[2024-12-14] MEDS: atorvastatin 40 mg Tablet 20 MG PO (20:33)
[2024-12-15] MEDS: TRAMadol 50 mg Tablet PO (01:17)
[2024-12-15] MEDS: ceFAZolin 2,000 MG in sodium chloride 0.9% (plus) 50 ML 100 MG IV (01:17)
[2024-12-15] MEDS: ketorolac 30 mg/mL INJ 15 MG IVP ×2 (01:17→11:24)
[2024-12-15 04:00] VITALS: BP 155/87; PULSE 68; RESP 18; TEMP 36.6; O2SAT 95
[2024-12-15 04:44] LABS: Basophils % 0.1 %; Hematocrit 32.9 % (36-47); Lymphocytes # 1.9 10^3/uL (0.8-4.8); Lymphocytes % 12.8 %; Mean Corpuscular HGB Conc 32.5 g/dL (30-55); Mean Corpuscular Hemoglobin 29.6 pg (27-33); Mean Corpuscular Volume 91.1 fl (85-98); Monocytes # 1.2 10^3/uL (0.2-0.9); Monocytes % 7.9 %; Neutrophils # 11.41 10^3/uL (1.8-7.7); Neutrophils % 78.9 %; Nucleated Red Blood Cells % 0 %; Platelet Count 298 10^3/cmm (157-399); Red Blood Count 3.61 10^6/uL (3.85-5.65); Red Cell Distribution Width 13.9 % (12.1-15.1); White Blood Count 14.49 10^3/uL (3.29-11.43)
[2024-12-15] MEDS: acetaminophen 1,000 MG/100 ML PIGGYBACK 400 MG IV (04:47)
[2024-12-15 04:48] VITALS: RESP 18
[2024-12-15] MEDS: oxyCODONE 5 mg IR Tab/Cap PO ×2 (04:48→09:46)
[2024-12-15 05:14] LABS: Anion Gap 14.6 (5-19); Blood Urea Nitrogen 13 mg/dL (6-20); Calcium 8.7 mg/dL (8.5-10.5); Carbon Dioxide 25 mmol/L (22-29); Chloride 103 mmol/L (98-107); Creatinine Clr Calc Pharmacy 79.0379; Glomerular Filtration Rate 126.7 mL/min (90-130); Glucose 130 mg/dL (65-115); Osmolality Calculated 288 mOsm/kg (285-295); Potassium 4.6 mmol/L (3.5-5.1); Sodium 138 mmol/L (136-145)
[2024-12-15] MEDS: docusate sodium 100 mg Capsule PO (08:28)
[2024-12-15] MEDS: calcium carb-vit d 600mg/400unit 1 Tablet 1 EACH PO (08:28)
[2024-12-15] MEDS: metoprolol tartrate 25 mg Tablet PO (08:29)
[2024-12-15] MEDS: pantoprazole DR 40 mg Tablet PO (08:29)
[2024-12-15] MEDS: apixaban 5 mg Tablet 2.5 MG PO (08:29)
[2024-12-15] MEDS: multivitamin therapeutic Tablet 1 TAB PO (08:29)
[2024-12-15] MEDS: iron polysaccharide complex 150 mg Capsule PO (08:30)
[2024-12-15] MEDS: clopidogrel 75 mg Tablet PO (08:30)
--- NOTE | 2024-12-15 09:06 | P.PN_ITS ---
Subjective 2 Subjective: She reported doing well today. Pain is improving. Denies any trouble breathing, cough, shortness of breath. Had some transient urine retention with Marquez yesterday, it was taken out and has been able to urinate without further issues. Vitals/I&O/Wt Last Vital Signs Temp 97.9 F 12/15/24 04:00 Pulse 68 12/15/24 04:00 Resp 18 12/15/24 04:48 BP 155/87 12/15/24 04:00 Pulse Ox 95 12/15/24 04:00 O2 Del Method Room Air 12/15/24 04:00 O2 Flow Rate 8 12/14/24 12:14 12/14/24 12/15/24 12/15/24 22:59 06:59 14:59 Intake Total 1250 / 2650 150 / 2800 Output Total 700 / 825 Balance 550 / 1825 150 / 1975 Weight last 48 hrs Weight 40.823 kg Weight 40.823 kg Physical Exam 2 Narrative: Accompanied by family member. Const: COMMON NORMALS: patient oriented x3 and alert GENERAL APPEARANCE: c ooperative ORIENTATION/CONSCIOUSNESS: Yes awake HENMT: COMMON NORMALS: oropharynx normal Neck/C-Spine: COMMON NORMALS: no JVD Resp: COMMON NORMALS: normal respiratory effort and clear to auscultation bilaterally AUSCULTATION: clear to auscultation bilaterally Cardio: COMMON NORMALS: no JVD, regular rhythm, S1 normal heart sound present, S2 normal heart sound present and No murmurs present (Cardio) RHYTHM: regular rhythm HEART SOUNDS: S1 normal heart sound present and S2 normal heart sound present GI: COMMON NORMALS: Normal to inspection, nondistended, normoactive bowel sounds present, Soft to palpation and non-tender PALPATION: Yes Soft to palpation Extremity: COMMON NORMALS: no joint enlargement and no pedal edema OTHER: Left knee wrapped in dressing. Minimal swelling around the knee. No ankle or foot swelling. Neuro: COMMON NORMALS: patient oriented x3 and moves all extremities S ENSORIUM/ORIENTATION: Yes alert Skin: COMMON NORMALS: no rashes or lesions noted GENERAL SKIN EXAM: no rashes or lesions noted Urinary Catheter Management: Marquez: Cath Placed During This Visit: yes, but has since been removed by the nurse Reason for Continuing Indwelling Catheter: Decision to DC Catheter Urinary Catheter Date of Insertion: 12/14/24 Urinary Catheter Time of Insertion: 10:20 Date Urinary Catheter Removed: 12/14/24 Time Urinary Catheter Discontinued: 20:37 Data 12/15/24 04:40 12/15/24 04:40 A&P Assessment and plan (1) Status post total knee replacement: She is doing well postoperatively. States pain is gradually improving. History of some difficulties urinating with a Marquez, it was removed with no further issues. No difficulty breathing. Encouraged incentive spirometer, she will take at home with her. She mobilized with physical therapy. Discussed with her regarding postoperative anemia, hemoglobin 10.7, on Plavix, Eliquis, will repeat hemoglobin in a couple of days. She knows to seek medical attention in case of any bleeding or any swelling of left lower extremity. Oxycodone as needed for moderate pain. IV Dilaudid as needed for severe pain. Consider minimizing NSAIDs, tramadol. 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 Aspirin is stopped for discharge. Continue metoprolol, atorvastatin. Pressure now more elevated, 155/87, can resume valsartan. Monitor blood pressure. Plan HTN: Monitor blood pressures. Blood pressure more elevated, 155/87, can resume valsartan. GERD: Continue PPI. PDMP PDMP Reviewed: Not Reviewed Attestations 2 Medical Necessity Statement*: Returning home once deemed appropriate by orthopedics. Coding Level of Care Code Acute Code for Chg Fwd Diagnoses Status post total knee replacement Z96.659 CAD (coronary artery disease) I25.10
[2024-12-15] MEDS: chlorhexidine gluconate 0.12% Btl 473 mL 30 ML MUCOUS MEM (09:23)
[2024-12-15] MEDS: mupirocin oint 22 gm 1 APPLIC NASAL (09:23)
[2024-12-15 09:46] VITALS: RESP 16
[2024-12-15 10:00] VITALS: BP 110/65; PULSE 64; RESP 16; TEMP 36.6; O2SAT 96
--- NOTE | 2024-12-15 12:21 | P.DS_ITS ---
Discharge Providers Date of Admission: 12/14/24 12:57 Date of Discharge: December 15, 2024 Attending Provider at Admission: Daniel Jack DO Attending Provider at Discharge: Daniel Jack DO Consults: Hospitalist-Dr. Greenfield Primary Care Provider: VINCE Lucero Diagnoses at Discharge Discharge Diagnosis (1) Status post total knee replacement: Status: Acute (2) CAD (coronary artery disease): Status: Acute Reason for Visit Reason for Visit: Brief History: Status post left TKA palmer robotic assisted Hospital Course Hospital Course Patient presented to the preoperative holding area with plan for [ left] total knee arthroplasty after patient has been worked up in the outpatient setting for failed conservative treatment of [left] knee degenerative joint disease. Once cleared by anesthesia for surgery patient subsequently was taken back to the operative suite underwent anesthesia per anesthesia department and then subsequently underwent a [left ] total knee arthroplasty. Procedure was performed without any complications patient was taken to PACU in stable condit ion patient recovered well in PACU and then was admitted to the floor postoperatively internal medicine was consulted and on board for medical management and assistance with care. Patient received appropriate PT/OT, postoperative antibiotics, pain control, postoperative DVT prophylaxis. Elevation and ice. Patient encouraged for knee range of motion allowed weightbearing as tolerated to the operative lower extremity. Dressing was changed as needed, labs were monitored daily. Patient recovered well postoperatively and worked well and progressed well with therapy. It was determined on postoperative day [ 1] the patient was stable for discharge from an orthopedic standpoint and medicine. Patient was comfortable with discharge and plan was discharged home. Patient received appropriate discharge instructions as well as pain medication and DVT prophylaxis postoperatively. Given appropriate instructions for dressing management. Patient will follow-up with Dr. Jack/orthopedics in the office in 2 weeks. All questions answered. Understand if there is any issues questions or concerns and contact the office. Physical Exam Narrative: Left knee examination: Dressing on in place, clean dry and intact. No evidence of saturation. Patient has normal postoperative swelling and tenderness to palpation to the knee. Compartments are soft compressible,'s calf soft and nontender. Sensations intact to light touch distally. Distal pulses are palpable. Patient is able to wiggle toes as well as plantarflex and dorsiflex ankle. Urinary Catheter Management: Marquez: Cath Placed During This Visit: yes, but has since been removed by the nurse Reason for Continuing Indwelling Catheter: Decision to DC Catheter Urinary Catheter Date of Insertion: 12/14/24 Urinary Catheter Time of Insertion: 10:20 Date Urinary Catheter Removed: 12/14/24 Time Urinary Catheter Discontinued: 20:37 Discharge Data Studies Completed and Pending Completed Studies During Hospitalization Category Date Time Status XR knee LT 1-2V [id number] Routine Exams 12/14/24 12:10 Completed Pending at discharge Category Date Time Status Basic Metabolic Panel AM LABS Lab 12/16/24 04:00 Ordered Basic Metabolic Panel AM LABS Lab 12/17/24 04:00 Ordered Complete Blood Count w/Auto AM LABS Lab 12/16/24 04:00 Ordered Complete Blood Count w/Auto AM LABS Lab 12/17/24 04:00 Ordered Retype for Patiets ABO/Rh Routine Lab 12/14/24 09:39 Ordered Radiology Impressions Knee X-Ray 12/14/24 12:10 IMPRESSION: Total left knee arthroplasty without abnormality. Laboratory Results WBC 14.49 10^3/uL (3.29-11.43) H 12/15/24 04:40 RBC 3.61 10^6/uL (3.85-5.65) L 12/15/24 04:40 Hgb 10.70 g/dL (11.27-16.99) L 12/15/24 04:40 Hct 32.9 % (36-47) L 12/15/24 04:40 MCV 91.1 fl (85-98) 12/15/24 04:40 MCH 29.6 pg (27-33) 12/15/24 04:40 MCHC 32.5 g/dL (30-55) 12/15/24 04:40 RDW 13.9 % (12.1-15.1) 12/15/24 04:40 Plt Count 298 10^3/cmm (157-399) 12/15/24 04:40 MPV 10.0 fL (7.4-10.4) 12/15/24 04:40 Neut % (Auto) 78.9 % 12/15/24 04:40 Lymph % (Auto) 12.8 % 12/15/24 04:40 Rapides % (Auto) 7.9 % 12/15/24 04:40 Eos % (Auto) 0.0 % 12/15/24 04:40 Baso % (Auto) 0.1 % 12/15/24 04:40 Neut # (Auto) 11.41 10^3/uL (1.8-7.7) H 12/15/24 04:40 Lymph # (Auto) 1.9 10^3/uL (0.8-4.8) 12/15/24 04:40 Rapides # (Auto) 1.2 10^3/uL (0.2-0.9) H 12/15/24 04:40 Eos # (Auto) 0.0 10^3/uL (0.0-0.8) 12/15/24 04:40 Baso # (Auto) 0.0 10^3/uL (0.0-0.1) 12/15/24 04:40 Nucleated RBC % (auto) 0 % 12/15/24 04:40 Nucleated RBCs # 0.0 /100WBC 12/15/24 04:40 Sodium 138 mmol/L (136-145) 12/15/24 04:40 Potassium 4.6 mmol/L (3.5-5.1) 12/15/24 04:40 Chloride 103 mmol/L (98-107) 12/15/24 04:40 Carbon Dioxide 25 mmol/L (22-29) 12/15/24 04:40 Anion Gap 14.6 (5-19) 12/15/24 04:40 BUN 13 mg/dL (6-20) 12/15/24 04:40 Creatinine 0.5 mg/dL (0.5-0.9) 12/15/24 04:40 GFR Calculation 126.7 mL/min (90-130) 12/15/24 04:40 Glucose 130 mg/dL (65-115) H 12/15/24 04:40 Calculated Osmolality 288 mOsm/kg (285-295) 12/15/24 04:40 Calcium 8.7 mg/dL (8.5-10.5) 12/15/24 04:40 Blood Type B Positive 12/14/24 08:53 Rho(D) Type Rh positive 12/14/24 08:53 Antibody Screen Negative 12/14/24 08:53 Vitals Last Vital Signs Temp 98 F 12/15/24 10:00 Pulse 64 12/15/24 10:00 Resp 16 12/15/24 10:00 BP 110/65 12/15/24 10:00 Pulse Ox 96 12/15/24 10:00 O2 Del Method Room Air 12/15/24 10:00 O2 Flow Rate 8 12/14/24 12:14 Discharge Plan Discharge Patient Disposition: Home Condition: Stable Prescriptions: New Eliquis 2.5 mg tablet 2.5 mg PO BID 14 Days Qty: 28 0RF methocarbamol 500 mg tablet 500 mg PO TID PRN (Reason: muscle spasms/pain) 14 Days Qty: 42 0RF oxycodone 5 mg tablet 5 mg PO Q6H PRN (Reason: pain postop) 7 Days Qty: 28 0RF Continued multivitamin Tablet 1 tab PO QAM albuterol sulfate 90 mcg/actuation HFA aerosol inhaler 2 puff inhalation Q6H PRN (Reason: shortness of breath or wheezing) Qty: 8.5 0RF epinephrine [EpiPen] 0.3 mg/0.3 mL auto-injector 0.3 mg IM ONCE PRN (Reason: anaphylaxis) Qty: 1 0RF Diovan 80 mg tablet 80 mg PO QAM Qty: 90 1RF pantoprazole [Protonix] 20 mg tablet,delayed release (DR/EC) 20 mg PO DAILY Qty: 90 1RF furosemide [Lasix] 20 mg tablet 20 mg PO QAM Qty: 90 1RF (DME) Left Knee (lateral) Physiatrist Brace See Rx Instructions .Route .MEDSUPPLY Qty: 1 0RF Rx Instructions: As directed Victoza 3-Tony 0.6 mg/0.1 mL (18 mg/3 mL) pen injector 1.8 mg SUBCUT DAILY Qty: 9 2RF buspirone 15 mg tablet 15 mg PO TID PRN (Reason: anxiety) Qty: 90 2RF desvenlafaxine succinate [Pristiq] 100 mg tablet extended release 24 hr 100 mg PO DAILY Qty: 30 2RF atorvastatin 40 mg tablet See Rx Instructions .ROUTE .COMPLEX Qty: 90 3RF Dose Instruction: TAKE 1 TABLET BY MOUTH AT BEDTIME Rx Instructions: TAKE 1 TABLET BY MOUTH AT BEDTIME nitroglycerin 0.4 mg tablet, sublingual 0.4 mg sublingual Q5M PRN (Reason: chest pain) Qty: 20 0RF Rx Instructions: do not exceed 3 doses per episode clopidogrel [Plavix] 75 mg tablet 75 mg PO DIRECTED Qty: 180 3RF Rx Instructions: Take 600mg (8 tabs) for first dose, then take 75mg (1 tab) daily. acetaminophen 500 mg Tablet 1,000 mg PO Q6H PRN (Reason: Pain) metoprolol tartrate 25 mg tablet 25 mg PO BID Rx Instructions: Take 1 tablet by mouth twice daily Discontinued aspirin 81 mg tablet,delayed release (DR/EC) 81 mg PO QAM celecoxib [Celebrex] 200 mg capsule 200 mg PO BID Qty: 60 2RF Discharge Orders: Discharge Order (Routine); Ordered 12/15/24 Ordered By: Juan Diego Greenfield Other Ambulatory Orders: Physical Therapy Eval and Treat Outpatient (Order) Timeframe: 3 Days Facility: [facility] - Location: Physical Therapy Ordered By: Daniel Jack Hemoglobin (Routine) Timeframe: 2 Days Facility: [facility] - Location: Lab - Main Lab Ordered By: Juan Diego Greenfield Referrals: [facility] Outpatient Therapy [Outside] (Someone from the [facility] will call you at home to setup a date & time to start coming in for outpt therapy. ) Darryl Jack PA [Physician [employer] Curator] - 12/29/24 2:30 pm Discharge Diet: Regular Discharge Activity: Limit activity as instructed Patient Instructions: Acute Wound Care (DC), Opioid Safety, Post Anesthesia Care Activity Restrictions/Additional Instructions: Orthopedic discharge instructions: Moraima Dressing--Keep dressing on and dry. After 3 days you can remove some of the dressing and shower. disconnect battery pack when showering. Moraima dressing will stay on until follow up appt in 2 weeks. The battery pack for the dressing will at 5-7 days. Battery pack can be removed and discarded once batteries . Patient may weight-bear as tolerate to the operative extremity Utilize walker as needed Encourage knee range of motion Ice and elevate as needed for pain and swelling Take pain medication as prescribed Take muscle relaxer as prescribed for muscle spasms and pain Take antinausea medication as needed Pain medication can cause constipation. take [id number] stool softeners and or MiraLAX. Take prescribed Eliquis twice daily for the next 14 days for blood clot prevention May supplement for pain with Tylenol [id number] as needed(1000 mg every 8 hours-do not exceed more than 3000mg in 24-hour period) No baths or soaks Follow-up in the orthopedic office in 2 weeks Contact the office for any questions or concerns Follow-up for recheck hemoglobin follow-up with your primary doctor for reassessment of anemia. Discontinue celecoxib and avoid NSAIDs if possible due to increasing risk of heart attack and stroke. Discharge Attestations Time Spent in Discharge Care*: less than 30 min Quality Metrics Clinical Quality Measures [ No reported AMI, CVA or VTE this stay] Coding Level of Care Code Acute Code for Chg Fwd Diagnoses Status post total knee replacement Z96.659 CAD (coronary artery disease) I25.10 Time Spent (min) 25
[2024-12-15 13:26] VITALS: BP 133/79; PULSE 72; RESP 16; TEMP 36.6; O2SAT 95
== END 2024-12-15 13:23 | disposition home or self-care (01) ==
LOC: OBGYN 12:57
PROVIDERS: Physician Assistant; Admitting Provider Student in an Organized Health Care Education/Training Program; PCP Nurse Practitioner; Visit Provider Student in an Organized Health Care Education/Training Program
PROC: 8E0Y0CZ Robotic Assisted Procedure of Lower Extremity, Open Approach (ICD-10-PCS; CPT 27447; principal; 2024-12-14 09:40)
DX: M17.12 Unilateral primary osteoarthritis, left knee (principal); K08.409 Partial loss of teeth, unspecified cause, unspecified class; I25.10 Atherosclerotic heart disease of native coronary artery without angina pectoris; K21.9 Gastro-esophageal reflux disease without esophagitis; E11.9 Type 2 diabetes mellitus without complications; Z79.02 Long term (current) use of antithrombotics/antiplatelets; Z79.899 Other long term (current) drug therapy; Z91.030 Bee allergy status; I10 Essential (primary) hypertension; F41.9 Anxiety disorder, unspecified; F32.A Depression, unspecified; F17.210 Nicotine dependence, cigarettes, uncomplicated; Z79.82 Long term (current) use of aspirin; Z79.85 Long-term (current) use of injectable non-insulin antidiabetic drugs; R33.8 Other retention of urine; Z95.5 Presence of coronary angioplasty implant and graft
CPT/HCPCS: 27447; 36415; 51702; 73560; 80048; 85025; 86850; 86900; 96374; 96376; 97110; 97116; 97161; 97165; A4216; C1776; G0378; J0131; J0171; J0690; J1100; J1885; J2250; J2371; J2405; J2704; J2795; J3370; J7030; J7120

== ENCOUNTER → 2024-12-29 14:31 | Outpatient (BNVA) | payer OTHER, SELFPAY | PROVIDERS: Visit Provider Physician Assistant | DX: Z96.652 Presence of left artificial knee joint (principal) | CPT/HCPCS: 73560; 73565 ==

== ENCOUNTER 2024-12-29 16:02 | Emergency (ER) | payer OTHER, SELFPAY ==
--- NOTE | 2024-12-29 16:04 | USR_ITS ---
PROCEDURE INFORMATION: Exam: US Duplex Left Lower Extremity Veins, Limited Exam date and time: 12/29/2024 4:11 PM Age: 59 years old Clinical indication: Pain; Leg, lower; Left; Prior surgery; Surgery date: <1 month; Surgery type: Knee replacement; Additional info: Dvt rule out TECHNIQUE: Imaging protocol: Real-time duplex ultrasound of the left extremity with 2-D you scale, color Doppler flow and spectral waveform analysis including responses to compression and other maneuvers (when performed) with image documentation. Limited exam focused on the left lower extremity veins. COMPARISON: CT knee LT NUNU [id number] 12/02/2024 8:33 AM FINDINGS: Left deep veins: Unremarkable. The common femoral, femoral, proximal profunda femoral, popliteal, and infrapopliteal veins are patent without thrombus. Normal Doppler waveforms. Normal compressibility and/or augmentation response. Superficial veins: Greater saphenous vein at the saphenofemoral junction is patent without thrombus. Soft tissues: Unremarkable as visualized. US/[place] [id number] IMPRESSION: No evidence of deep vein thrombosis in the left lower extremity.
[2024-12-29 16:09] VITALS: BP 117/69; PULSE 85; RESP 14; TEMP 36.8; O2SAT 97; BMI 32.4
--- NOTE | 2024-12-29 16:51 | ED_ITS ---
HPI - Extremity Problem General: Chief complaint: Extremity Injury, Lower Stated complaint: (dr ribeiro) ultrasound on left knee Time Seen by Provider: 12/29/24 16:05 Source: patient Mode of arrival: ambulatory Limitations: no limitations History of Present Illness: 59-year-old female who had left knee rep lacement 2 weeks ago she is seeing her orthopedist in the office today she has been having some slight left calf swelling and pain no fever states pains been mild we will sit down here for an ultrasound to rule out a DVT she denies any new injuries has been ambulatory Associated symptoms: Deny chest pain or fever(s) Related Data Home Medications ?Medication ?Instructions ?Recorded ?Confirmed multivitamin 1 tab PO QAM 01/09/21 acetaminophen 500 mg tablet 1,000 mg PO Q6H PRN Pain 0 04/04/23 12/29/24 metoprolol tartrate 25 mg tablet 25 mg PO BID 12/10/24 12/29/24 Previous Rx's ?Medication ?Instructions ?Recorded albuterol sulfate 90 mcg/actuation 2 puff inhalation Q 6H PRN 08/29/23 aerosol inhaler shortness of breath or wheez ing #8.5 grams Left Knee (lateral) 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 Operator Brace #1 ea 02/25/24 atorvastatin 40 mg tablet See Rx Instructions .Route 0 03/26/24 .COMPLEX #90 tabs epinephrine 0.3 mg/0.3 mL 0.3 mg (0.3 mL) IM ONCE PRN 04/17/24 injection, auto-injector (EpiPen) anaphylaxis #1 ea nitroglycerin 0.4 mg sublingual 0.4 mg sublingual Q5M PRN chest 04/28/24 tablet pain #20 tabs furosemide 20 mg tablet (Lasix) 20 mg PO QAM #90 tabs 09/15/24 pantoprazole 20 mg tablet,delayed 20 mg PO DAILY #90 t abs 09/15/24 release (Protonix) valsartan 80 mg tablet (Diovan) 80 mg PO QAM #90 tabs 09/15/24 clopidogrel 75 mg tablet (Plavix) 75 mg PO DIRECTED #180 tabs 10/19/24 buspirone 15 mg tablet 15 mg PO TID PRN anxiety #90 tabs 11/24/24 desvenlafaxine succinate 100 mg 100 mg PO DAILY #30 ta bs 11/24/24 tablet,extended release 24 hr (Pristiq) liraglutide 0.6 mg/0.1 mL (18 mg/3 1.8 mg (0.3 mL) SUB CUT DAILY #9 mL 11/24/24 mL) subcutaneous pen injector (Victoza 3-Tony) oxycodone 5 mg tablet 5 mg PO Q6H PRN pain postop 7 days 12/22/24 #28 tabs hydrocodone 10 mg-acetaminophen 1 tab PO Q6H PRN pain 5 days #20 12/29/24 325 mg tablet tabs Allergies Allergy/AdvReac Type Severity Reaction Status Date / Time bee venom protein (honey bee) Allergy Severe ALGY-Anaphy Verified 12/29/24 16:22 laxis Review of Systems Const: Denies: fever(s), chills, body aches or change in appetite ENMT: Denies: throat pain or dental pain Card: Denies: chest pain Resp: Denies: dyspnea GI: Denies: abdominal pain, nausea, vomiting or diarrhea Musc: Reports: extremity pain and extremity swelling; Denies: neck pain or back pain Skin/Breast: Denies: erythema Neuro: Denies: headache(s) [facility] ED PFSH: Medical History Atherosclerosis of coronary artery Unstable angina Obesity (BMI 30-39.9) Abnormal stress test HTN (hypertension) Anxiety GERD (gastroesophageal reflux disease) Depression History of fracture of right ankle Surgical History History of heart artery stent 04/04/23 LAD at [facility] Hx of hysterectomy Hx of tonsillectomy Family History Brother CAD (coronary artery disease), Onset Age: 29 Stented coronary artery x8 Family history of premature coronary artery disease Cancer Mother Stented coronary artery CAD (coronary artery disease), Onset Age: 45 Cancer colon Father CAD (coronary artery disease), Onset Age: 43 Stented coronary artery Family history of CABG Other Diabetes Denies family history of Stroke Social History Smoking and tobacco/nicotine status: current every day tobacco/nicotine user cigarettes Packs smoked per day: 0.25 Second hand smoke exposure: No Alcohol intake: unknown Substance/Drug Use: unknown Adopted: No Caregiver/support person: No Lives independently: Yes Household members: none Housing: House Marital status: Single Number of children: 2 service: No Current occupational status: employed 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 [employer] Pets and animals: Yes Pets & animals: dog(s) Do you think of yourself as: Straight/Heterosexual Current gender identity: Female Physical Exam Const: COMMON NORMALS: no acute distress, patient oriented x3 and healthy appearing HENMT: COMMON NORMALS: normocephalic and atraumatic HEAD & SCALP: normocephalic and atraumatic Eye: COMMON NORMALS: conjunctivae normal CONJUNCTIVA: Yes conjunctivae normal Neck/C-Spine: COMMON NORMALS: supple Chest: COMMONS NORMALS: normal inspection of the chest Resp: COMMON NORMALS: normal respiratory effort Cardio: COMMON NORMALS: regular rate RATE: regular rate Extremity: NARRATIVE EXTREMITY EXAM: Swelling noted to left lower leg minimal tenderness incisions clean dry and intact no drainage no redness Neuro: COMMON NORMALS: patient oriented x3, moves all extremities and no focal motor deficits Psych: COMMON NORMALS: mental status grossly normal, Normal thought process present and cooperative THOUGHT PROCESS: Normal thought process present Skin: COMMON NORMALS: no rashes or lesions noted and no wounds GENERAL SKIN EXAM: no rashes or lesions noted Course Vital Signs: Vital signs: Vital Signs Temperature 98.2 F 12/29/24 16:09 Pulse Rate 85 12/29/24 16:09 Respiratory Rate 14 12/29/24 16:09 Blood Pressure 117/69 12/29/24 16:09 Pulse Oximetry 97 12/29/24 16:09 MDM - Extremity (Nontraumatic) Medical Decision Making Patient presents for left leg swelling postop exam here is benign ultrasound showed no DVT she has no signs of infection she stable for discharge follow-up with orthopedist return if worsening Medical Records I reviewed the patient's medical records. All radiology interpretation(s) finalized by discharge Discharge Plan Discharge Patient Disposition: Home Clinical Impression: Left leg swelling Condition: Stable Prescriptions: No Action multivitamin Tablet 1 tab PO QAM albuterol sulfate 90 mcg/actuation HFA aerosol inhaler 2 puff inhalation Q6H PRN (Reason: shortness of breath or wheezing) Qty: 8.5 0RF epinephrine [EpiPen] 0.3 mg/0.3 mL auto-injector 0.3 mg IM ONCE PRN (Reason: anaphylaxis) Qty: 1 0RF Diovan 80 mg tablet 80 mg PO QAM Qty: 90 1RF pantoprazole [Protonix] 20 mg tablet,delayed release (DR/EC) 20 mg PO DAILY Qty: 90 1RF furosemide [Lasix] 20 mg tablet 20 mg PO QAM Qty: 90 1RF (DME) Left Knee (lateral) 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 Operator Brace See Rx Instructions .Route .MEDSUPPLY Qty: 1 0RF Rx Instructions: As directed Victoza 3-Tony 0.6 mg/0.1 mL (18 mg/3 mL) pen injector 1.8 mg SUBCUT DAILY Qty: 9 2RF buspirone 15 mg tablet 15 mg PO TID PRN (Reason: anxiety) Qty: 90 2RF desvenlafaxine succinate [Pristiq] 100 mg tablet extended release 24 hr 100 mg PO DAILY Qty: 30 2RF hydrocodone-acetaminophen 10-325 mg tablet 1 tab PO Q6H PRN (Reason: pain) 5 Days Qty: 20 0RF atorvastatin 40 mg tablet See Rx Instructions .ROUTE .COMPLEX Qty: 90 3RF Dose Instruction: TAKE 1 TABLET BY MOUTH AT BEDTIME Rx Instructions: TAKE 1 TABLET BY MOUTH AT BEDTIME nitroglycerin 0.4 mg tablet, sublingual 0.4 mg sublingual Q5M PRN (Reason: chest pain) Qty: 20 0RF Rx Instructions: do not exceed 3 doses per episode clopidogrel [Plavix] 75 mg tablet 75 mg PO DIRECTED Qty: 180 3RF Rx Instructions: Take 600mg (8 tabs) for first dose, then take 75mg (1 tab) daily. oxycodone 5 mg tablet 5 mg PO Q6H PRN (Reason: pain postop) 7 Days Qty: 28 0RF acetaminophen 500 mg Tablet 1,000 mg PO Q6H PRN (Reason: Pain) metoprolol tartrate 25 mg tablet 25 mg PO BID Rx Instructions: Take 1 tablet by mouth twice daily Discharge Orders: Discharge ED (Routine); Ordered 12/29/24 Ordered By: Willam Ochoa Discharge Diet: Advance as tolerated Discharge Activity: Resume usual activity Patient Instructions: Knee Pain (ED) Print Language: German Coding Level of Care Code ED Superintendent Overhead Distribution for Wendy Leary
[2024-12-29 17:10] VITALS: BP 117/69; PULSE 85; O2SAT 97
== END 2024-12-29 17:13 | disposition home or self-care (01) ==
PROVIDERS: Emergency Provider Emergency Medicine
DX: R22.42 Localized swelling, mass and lump, left lower limb (principal); M79.605 Pain in left leg; Z79.02 Long term (current) use of antithrombotics/antiplatelets; F17.210 Nicotine dependence, cigarettes, uncomplicated; I10 Essential (primary) hypertension; I25.10 Atherosclerotic heart disease of native coronary artery without angina pectoris; Z96.652 Presence of left artificial knee joint
CPT/HCPCS: 93971; 99284

== ENCOUNTER 2024-12-30 11:48 | Outpatient (RCR) | payer OTHER, SELFPAY | END 2025-01-01 23:59 | disposition home or self-care (01) | LOC: SPT 11:48 | PROVIDERS: Visit Provider Student in an Organized Health Care Education/Training Program | DX: Z47.1 Aftercare following joint replacement surgery (principal); Z96.652 Presence of left artificial knee joint | CPT/HCPCS: 97110; 97161 ==

== ENCOUNTER 2025-01-02 06:30 | Outpatient (RCR) | payer OTHER, SELFPAY | END 2025-02-01 23:59 | disposition home or self-care (01) | LOC: SPT 06:30 | PROVIDERS: Visit Provider Student in an Organized Health Care Education/Training Program | DX: Z47.1 Aftercare following joint replacement surgery (principal); Z96.652 Presence of left artificial knee joint | CPT/HCPCS: 97110 ==

== ENCOUNTER 2025-02-02 06:30 | Outpatient (RCR) | payer OTHER, SELFPAY | END 2025-02-09 15:32 | disposition home or self-care (01) | LOC: SPT 06:30 | PROVIDERS: PCP Nurse Practitioner; Visit Provider Student in an Organized Health Care Education/Training Program | DX: Z47.1 Aftercare following joint replacement surgery (principal); Z96.652 Presence of left artificial knee joint | CPT/HCPCS: 97110 ==

== ENCOUNTER → 2025-02-09 14:47 | Outpatient (BNVA) | payer OTHER, SELFPAY | PROVIDERS: PCP Nurse Practitioner; Visit Provider Physician Assistant | DX: Z98.890 Other specified postprocedural states (principal); Z96.652 Presence of left artificial knee joint | CPT/HCPCS: 73560; 73565 ==

== ENCOUNTER → 2025-02-22 11:05 | Outpatient (BNVA) | payer OTHER, SELFPAY | PROVIDERS: PCP Nurse Practitioner; Visit Provider Nurse Practitioner | DX: R73.9 Hyperglycemia, unspecified (principal) | CPT/HCPCS: 83036 ==

== ENCOUNTER 2025-02-26 13:06 | Outpatient (CLI) | payer OTHER, SELFPAY ==
--- NOTE | 2025-02-26 13:40 | MM_ITS ---
WS: [id number] BILATERAL 3D TOMOSYNTHESIS DIGITAL SCREENING MAMMOGRAPHY WITH CAD CLINICAL INFORMATION: Z12.31 - Encounter for screening mammogram for malignant ... HISTORY: Screening mammogram. No current complaints. COMPARISON: 2023 TECHNIQUE: Bilateral CC and MLO views. FINDINGS: Scattered fibroglandular densities bilaterally. No suspicious focal mass, asymmetry, calcifications, or architectural distortion. No evidence of malignancy. A few incidental intramammary lymph nodes. MM/MM [facility] tomosynthesis [id number] IMPRESSION: DENSITY: There are scattered areas of fibroglandular density. BI-RADS: 2 - Benign. FOLLOW UP: 1 Year Follow-up Recommend return to annual screening mammography.
== END 2025-02-26 13:07 | disposition home or self-care (01) ==
PROVIDERS: PCP Nurse Practitioner; Visit Provider Nurse Practitioner
DX: Z12.31 Encounter for screening mammogram for malignant neoplasm of breast (principal); R92.323 Mammographic fibroglandular density, bilateral breasts; R59.0 Localized enlarged lymph nodes
CPT/HCPCS: 77063; 77067

== ENCOUNTER → 2025-04-28 14:43 | Outpatient (BNVA) | payer OTHER, SELFPAY | PROVIDERS: PCP Nurse Practitioner; Visit Provider Physician Assistant | DX: M79.641 Pain in right hand (principal); M65.321 Trigger finger, right index finger; M18.11 Unilateral primary osteoarthritis of first carpometacarpal joint, right hand | CPT/HCPCS: 73130 ==

== ENCOUNTER 2025-04-29 14:38 | Outpatient (CLI) | payer OTHER, SELFPAY ==
--- NOTE | 2025-04-29 14:40 | US_ITS ---
WS: [id number] US pelv w/transvag [id number] HISTORY: N83.209 - Unspecified ovarian cyst, unspecified side COMPARISON: 10/05/2024 Status post hysterectomy. No midline mass. No free fluid in the pelvis. Urinary bladder is only minimally distended for transabdominal imaging. Neither ovary is identified. By history RIGHT ovary has been removed. US/US pelv w/transvag [id number] IMPRESSION: 1. LEFT ovary not identified. No ovarian cyst identified. 2. Status post hysterectomy and RIGHT oophorectomy.
== END 2025-04-29 14:39 | disposition home or self-care (01) ==
PROVIDERS: PCP Nurse Practitioner; Visit Provider Nurse Practitioner
DX: N83.202 Unspecified ovarian cyst, left side (principal); Z90.710 Acquired absence of both cervix and uterus; Z90.721 Acquired absence of ovaries, unilateral; Z87.42 Personal history of other diseases of the female genital tract
CPT/HCPCS: 76830; 76856

== ENCOUNTER → 2025-06-14 11:58 | Outpatient (BNVA) | payer OTHER, SELFPAY | PROVIDERS: PCP Nurse Practitioner; Visit Provider Nurse Practitioner | DX: I10 Essential (primary) hypertension (principal); D64.9 Anemia, unspecified; E55.9 Vitamin D deficiency, unspecified | CPT/HCPCS: 80053; 80061; 82306; 82607; 84443; 85025 ==

== ENCOUNTER 2025-07-09 07:33 | Outpatient (CLI) | payer OTHER, SELFPAY ==
--- NOTE | 2025-07-09 | ECG_ITS ---
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 Interpretive Statements Lung unchanged pre/post procedure; Intraprocedure shortess of breath; Symptoms resoled by discharge PROCEDURE: At the baseline, the EKG revealed normal sinus rhythm with a normal ST Ts. The baseline heart was 64 bpm with a blood pressue of 115/74 mm of Hg Lexiscan was infused over a period of 20 seconds. A total of 0.4 milligrams of Lexiscan was infused. The stress phase was continued for a total of 5 minutes. Heart rate at the end of the stress phase was 78 bpm with a blood pressure 103/68 mm of Hg. The EKG at the peak infusion revealed no significant changes. Sestamibi was injected 20 seconds after the Lexiscan infusion. Heart rate at the end of the recovery phase was 75 bpm with a blood pressure of 118/70 mm of Hg. CONCLUSION: 1. No significant EKG changes with the LexiScan infusion 2. No LexiScan induced chest pain or cardiac arrhythmia 3. Normal blood pressure and heart rate response 4. Sestamibi/sestamibi perfusion scan pending; see separate report. Electronically Signed On 07-10-2025 12:17:14 CDT by Gerald Pompa M.D. [email or web address]"
[2025-07-09 08:23] VITALS: BMI 33.6
--- NOTE | 2025-07-09 08:23 | NMCV_ITS ---
NM jhoan perf SPECT r/s* [id number] Miroslava Zhang Age: 59 Gender: F : 1965 Exam Date: 07/09/2025 08:48 Ordering Phys: Pee Brock M.D ([email or web address]) Technologist: BRITNI Concepcion Exam Location: [facility] Indications: cp STRESS TEST Please see separate stress test report in [facility] for full findings IMAGE PROTOCOL Rest/Stress 1 Lexiscan Day Radiopharmaceutical Dose (mCi) Administration Site Administered by Rest: Tc-99m 10.8 IV Sally Stevens COPY SUPERVISOR Sestamibi Stress:Tc-99m 32.6 IV Sally Stevens, COPY SUPERVISOR Sestamibi Rest: 09-Jul-2025 60 Discovery 630 Stress: 09-Jul-2025 30 Discovery 630 0.4mg Lexiscan. Images obtained in supine and prone position. SPECT RESULTS Technical Quality: Good Raw Data Analysis: Normal Image Corrections: No attenuation or motion correction applied Summed Stress Score: 0 Summed Rest Score: 1 Summed Difference Score: 0 PERFUSION FINDINGS Patchy areas of slightly decreased tracer uptake were noted in the anterior wall, inferior wall and inferolateral wall regions. No reversibility was noted in these areas FUNCTIONAL RESULTS (calculated via Gated SPECT) Stress Image LV EF (%): 68 Stress EDV (mL):91 TID: 1.38 Stress ESV (mL):29 FUNCTIONAL FINDINGS: Segmental wall motion analysis revealing no gross wall motion abnormalities The transient ischemic dilatation ratio was found to be elevated markedly to 1.38 IMPRESSIONS 1. No significant perfusion normalities. 2. Markedly elevated transient ischemic dilatation ratio of 1.38 3. Normal LV ejection fraction of 68% 4. LV wall motion analysis revealing no gross wall motion abnormalities. 5. Normal LV volume The elevated transient ischemic dilatation ratio, may suggest endocardial ischemia-appears to be new compared to the last study of 04/28/2024.. But the specificity is low.Clinical correlation is recommended Dr Gerald Pompa MD [facility] (Electronically Signed) Final Date: 09 July 2025 11:42 S
[2025-07-09 09:32] VITALS: BP 118/70; PULSE 71
--- NOTE | 2025-07-09 15:15 | USCV_ITS ---
Miroslava Zhang Age: 59 Gender: F : 1965 Exam Date: 07/09/2025 08:21 Ordering Phys: Pee Brock M.D ([email or web address]) Technologist: Exam Location: [facility] [place] Indication: CP SOB BP: 130 / 80 HR: 59 Rhythm: Sinus Technical Quality: Adequate MEASUREMENTS (Male / Female) Normal Values 2D ECHO LV Diastolic Diameter PLAX 4.0 cm 4.2 - 5.9 / 3.9 - 5.3 cm IVS Diastolic Thickness 1.1 cm 0.6 - 1.0 / 0.6 - 0.9 cm IVS Systolic Thickness 1.8 cm LVPW Diastolic Thickness 1.2 cm 0.6 - 1.0 / 0.6 - 0.9 cm LVPW Systolic Thickness 1.9 cm LVOT Diameter 2.1 cm LV Ejection Fraction 2D Teich 68.3 % LV Ejection Fraction MOD 4C 70.5 % LV Ejection Fraction MOD 2C 74.7 % LV Ejection Fraction 2C AL 75.9 % LA Diameter 4.0 cm RA Systolic Volume 4C AL 45.3 ml RA Systolic Volume 4C MOD 42.4 ml Aorta at Sinotubular Diameter 3.0 cm IVC Diameter 1.9 cm M-MODE LA Ao Ratio MM 1.3 AV Cusp Separation MM 1.8 cm DOPPLER AV Peak Velocity 163.0 cm/s LVOT Peak Velocity 95.0 cm/s AV Area Cont Eq vti 1.9 cm squared AV Area Cont Eq pk 2.0 cm squared MV Area PHT 2.9 cm squared Mitral E to A Ratio 0.9 TR Peak Velocity 279.0 cm/s TR Peak Gradient 31.1 mmHg TV Peak E Velocity 74.0 cm/s PV Peak Velocity 124.0 cm/s FINDINGS Left Ventricle Normal left ventricular size, systolic function and wall thickness, with no regional wall motion abnormalities. Left ventricular ejection fraction is estimated at 60 %. Grade I/IV diastolic dysfunction (abnormal relaxation filling pattern), normal to mildly elevated filling pressures. Right Ventricle Mild pulmonary hypertension, RVSP 35 mmHg. Right Atrium Mildly increased right atrial size. Left Atrium Mildly increased left atrial size. Mitral Valve Thickened mitral valve. No mitral valve stenosis. Mild mitral valve regurgitation. Aortic Valve Mild aortic valve calcification. No aortic valve stenosis. No aortic valve regurgitation. Tricuspid Valve Severe tricuspid valve regurgitation. Pulmonic Valve Structurally normal pulmonic valve without significant stenosis. There is no pulmonic regurgitation. Pericardium Normal pericardium without effusion. Aorta Normal ascending aorta dimension. IVC The inferior vena cava appears normal. CONCLUSIONS Normal left ventricular size, systolic function and wall thickness, with no regional wall motion abnormalities. Left ventricular ejection fraction is estimated at 60 %. Grade I/IV diastolic dysfunction (abnormal relaxation filling pattern), normal to mildly elevated filling pressures. Severe tricuspid valve regurgitation. Thickened mitral valve. No mitral valve stenosis. Mild mitral valve regurgitation. There is no pericardial effusion. Right atrial pressure is around 5 mm of mercury. Amrit Walker MD (Electronically Signed) Final Date: 09 July 2025 11:52 S
== END 2025-07-09 07:34 | disposition home or self-care (01) ==
LOC: CDL 07:35
PROVIDERS: PCP Nurse Practitioner; Visit Provider Internal Medicine
DX: R07.9 Chest pain, unspecified (principal); R06.02 Shortness of breath; R94.39 Abnormal result of other cardiovascular function study; I49.8 Other specified cardiac arrhythmias; I08.1 Rheumatic disorders of both mitral and tricuspid valves
CPT/HCPCS: 36415; 78452; 93017; 93306; 96374; A9500; J2785

== ENCOUNTER 2025-07-20 08:30 | Outpatient (CLI) | payer OTHER, SELFPAY ==
[2025-07-20] VITALS (14 sets, daily range): BP systolic 105–135; BP diastolic 51–87; PULSE 65–86; RESP 15–22; TEMP 36.6; O2SAT 92–99; BMI 33.4
--- NOTE | 2025-07-20 09:00 | XACV_ITS ---
Exam Room: 2 Ht: 165 cm Wt: 91 kg BSA: 2.08 m2 Gender: Female : 1965 Any Known Allergies: Other Exam Priority: Routine Procedure(s): Procedure Description: Diagnostic procedure Procedure Description: Left Heart Catheterization Procedure Description: Left ventriculography Procedure Description: Coronary Angiography Diagnostic Cath Status: Elective Diagnostic Findings * Indication: Chest pain/abnormal stress test. * No significant disease noted in the Left Main, Left Anterior Descending, Right, or Circumflex coronary arteries. Patent LAD stent. * Patent prior LAD stent. * Coronary angiography shows right dominance. Conclusions 1. No significant disease noted in the Left Main, Left Anterior Descending, Right, or Circumflex coronary arteries. Patent LAD stent. 2. Normal left ventricular systolic function. Ejection fraction of 60%. Recommendations * We will add Imdur as patient has microvascular dysfunction. Aggressive risk factor modification. Smoking cessation again recommended. * Outpatient cardiology follow up in 2 weeks. Interventional RX Recommendation: medical therapy and/or counseling Diagnostic RX Recommendation: medical therapy and/or counseling Anticoagulation: Heparin Ventriculography Ejection Fraction: 60.0 % Pressures Phase:Rest AO : 131 / 71 ( 99 ) @ 10:57:00 AM 130 / 69 ( 98 ) @ 10:57:00 AM LV : 138 / -2 / 19 @ 10:56:00 AM 133 / -4 / 17 @ 10:57:00 AM 133 / -5 / 17 @ 10:57:00 AM Valves Phase:DefaultPhase AV : 2.0 @ 10:02:34 AM AV Mean Gradient: 0.0 @ 10:02:34 AM Clinical Evaluation EBL: 5mL-10mL Procedural Details Procedure Consent Obtained. Admit Source: Out Patient. Pre-Procedure Time Out. Identified patient by full name and date of as verbalized by the patient/guarantor. Does the consent match the physician's order: Yes. Accurate & Complete Informed Consent: Yes. Inpatient/Outpatient History & Physical on Chart: Yes. If H&P is completed, is and addenduem needed: No; If yes, is the addendum complete: N/A. Visualize and Verify Site with Patient/Guarantor: N/A. Relevant Radiology Images available: Yes. The risks, benefits, and alternatives of sedation and/or procedure were discussed by physician. The patient agrees to continue. Procedure started. 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 Chest Pain Symptom Assessment: Typical Angina Symptoms. Correct patient, site and procedure confirmed by cath team. Current diagnosis: Chest Pain, Abnormal stress test. PERRLA. 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 Lungs clear x 5 lobes. IV Site on Arrival: 20 gauge in the right anticubital. IV Fluids: 0.9% NaCl at KVO. 0 mL infused prior to director of cath lab. Pre Procedural Pulses: bilateral radial was 1+. Pre Procedural Pulses: bilateral posterior tibial was 1+. Pre Procedural Pulses: bilateral dorsalis pedis was 1+. Oxygen started at 2liters/min via nasal canula. right radial was prepped with chloroprep then draped in the usual sterile fashion. right groin was prepped with chloroprep then draped in the usual sterile fashion. Physician notified. Baseline sample Acquired. HR: 81 BPM. Physician arrived. Physician scrubbed in. Immediate Pre-Procedure Time Out. Correct Patient: Yes; Correct Procedure: Yes; Correct Site: Yes; Correct Patient Position: Yes; Correct Supplies: Yes; Dried Flammable Prep: Yes; Blood Products Available: Yes;. Lidocaine 1% infiltrated to the right radial. Ultrasound obtained to assist with arterial access. Arterial access obtained. Lidocaine 1% infiltrated to the right radial. A 5 finnish TIG catheter in over wire. Multiple views taken of left coronary artery. Catheter redirected to the RCA. Catheter removed over the exchange wire. A 5 finnish JR4 catheter in over wire. Multiple views taken of right coronary artery. Catheter removed over the exchange wire. A 5 finnish Angled Pig catheter in over wire. Wire out. EDP Sample taken: LV 138/-3,19; HR: 71 BPM; SpO2: 100%. LV gram performed in GOMES @ 10 mL/second for a total of 30 mL. EDP Sample taken: LV 133/-5,17; HR: 74 BPM; SpO2: 100%. Pullback taken: LV 133/-6,17; AO 131/71(99); Mean: 0mmHg, Peak to Peak: 2mmHg, SEP: 21sec/min; HR: 76 BPM; SpO2: 99%. Catheter removed over the exchange wire. A TR Band was successful obtaining hemostatsis at the Right Radial artery insertion site. Physician scrubbed out. Post Procedure: Pulses reassessed and unchanged. PERRLA. 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 No VTE prophylaxis required. Medication's Wasted: Lidocaine 1% = 18 mL. Medication's Wasted: Nitro = 49.8 mg. Medication's Wasted: Heparin = 1000 unit. Total IV fluids: 25 mL. Post-op diagnosis: Patent Prior Stent. Non-obstructive CAD. Complications: None. Estimated blood loss: 5mL-10mL. Responsiveness - Normal response to verbal stimuli; alert and oriented, PERRLA. Airway - Unaffected, no intervention required; spontaneous ventilation. Circulation: W/N/L, pulses unchanged. Nausea/Vomiting: No. Procedure completed. Patient transferred by wheelchair to CPRU. Vital chart was stopped. Access Site Site: Right Radial artery Sheath Size: 6 Fr Hemostasis Method: TR Band Hemostasis Success: Successful Procedure Medications Start: 9:34 AM Stop: 9:34 AM Medication: Versed Amount: 1 mg Route: I.V. Start: 9:35 AM Stop: 9:35 AM Medication: Fentanyl Amount: 50 mcg Route: I.V. Start: 9:39 AM Stop: 9:39 AM Medication: Versed Amount: 1 mg Route: I.V. Start: 9:41 AM Stop: 9:41 AM Medication: Versed Amount: 1 mg Route: I.V. Start: 9:42 AM Stop: 9:42 AM Medication: Fentanyl Amount: 25 mcg Route: I.V. Start: 9:46 AM Stop: 9:46 AM Medication: Nitrogylcerin Amount: 200 mcg Route: I.A. Start: 9:46 AM Stop: 9:46 AM Medication: Versed Amount: 1 mg Route: I.V. Start: 9:47 AM Stop: 9:47 AM Medication: Fentanyl Amount: 25 mcg Route: I.V. Start: 9:48 AM Stop: 9:48 AM Medication: Heparin Amount: 5000 units Route: I.V. I, the attending physician, have reviewed and verified all procedure medications. Yes, all medications given per verbal order History/Risk Factors Hypertension: Yes Dyslipidemia: No Peripheral Arterial Disease (PAD): No Myocardial Infarction (NE): No Obesity: Yes Renal Disease: No Tobacco Use: Current/Recent(w/in 1 year) Prior Interventions PCI: Yes CABG: No Valve Surgery: No Date of PCI: 04/04/2023 Report Signatures Finalized by Pee Brock MD on 07/20/2025 12:22 PM
[2025-07-20 09:20] LABS: Hematocrit 41.7 % (36-47); Hemoglobin 13.60 g/dL (11.27-16.99); Mean Corpuscular HGB Conc 32.6 g/dL (30-55); Mean Corpuscular Hemoglobin 29.5 pg (27-33); Mean Corpuscular Volume 90.5 fl (85-98); Nucleated Red Blood Cells % 0 %; Platelet Count 297 10^3/cmm (157-399); Red Blood Count 4.61 10^6/uL (3.85-5.65); White Blood Count 9.33 10^3/uL (3.29-11.43)
--- NOTE | 2025-07-20 09:29 | W.PM.OPSUD ---
Surgery/Procedure H&P Update DATE OF PROCEDURE: July 20, 2025 DATE H&P PERFORMED: 07/06/25 H&P UPDATE INFORMATION: I have reviewed H&P completed within last 30 days, I have examined patient prior to procedure and Changes to prior documentation as noted here CHANGES TO PREVIOUS DOCUMENTATION: Patient had a stress test that shows significant elevation of TID ratio. PREOP DIAGNOSIS: Chest pain/ abnormal stress test PRIMARY INDICATION FOR PROCEDURE: Chest pain/ abnormal stress test PLANNED PROCEDURE: Operation Date: 07/20/25 10:00 Proposed Procedures p Cardiac Catheterization - [facility] w/wo Lv & Coros(Left) - Pee Brock M.D Possible percutaneous coronary intervention PATIENT REASSESSED PRIOR TO SEDATION, WITH NO CHANGE NOTED: Yes PHYSICAL EXAM: alert, oriented x 3, clear to auscultation bilaterally and regular rate & rhythm AIRWAY EVAL/ANESTHESIA PLAN: normal airway, ASA III, Local Anesthesia, Risks, benefits & alternatives of sedation and/or procedure discussed and Patient agrees to continue as planned ADDITIONAL INFORMATION: Moderate sedation
[2025-07-20 09:38] LABS: Anion Gap 15.7 (5-19); Blood Urea Nitrogen 18 mg/dL (6-20); Calcium 9.3 mg/dL (8.5-10.5); Carbon Dioxide 25 mmol/L (22-29); Chloride 102 mmol/L (98-107); Creatinine Clr Calc Pharmacy 112.6284; Glucose 87 mg/dL (65-115); Osmolality Calculated 289 mOsm/kg (285-295); Potassium 3.7 mmol/L (3.5-5.1); Sodium 139 mmol/L (136-145)
--- NOTE | 2025-07-20 10:05 | PM.PROC ---
Procedure Note: Date of procedure: 07/20/25 Pre-procedure diagnosis: Chest pain/abnormal stress test Post-procedure diagnosis: other (Non-obstructive coronary artery disease) Procedure: Patent coronary arteries. Patent prior LAD stent. Continue dual antiplatelet therapy with aspirin and plavix We will add imdur for anginal symptoms Performing Provider: Pee Brock Estimated blood loss (mL): 5 Complications: None Condition: stable Disposition: same day Coding Level of Care Code Acute Code for Wendy Leary
--- NOTE | 2025-07-20 10:07 | SUR.PHASEII ---
POST CATH NOTE Received patient from field laborer. Status post cardiac catheterization via the right radial approach. TR Band in place and is hemostatic. Verbal post cath instructions went over with the patient. She understood well. Vitals and assessments per flowsheet- see details. Call light within reach. Informed to call for needs.
--- NOTE | 2025-07-20 10:10 | SUR.PHASEII ---
POST CATH FLUIDS IV set at 100 ml/hr 0.9% NS post cath as ordered.
== END 2025-07-20 13:22 | disposition home or self-care (01) ==
PROVIDERS: PCP Nurse Practitioner; Visit Provider Internal Medicine
DX: R07.9 Chest pain, unspecified (principal); R94.39 Abnormal result of other cardiovascular function study; I10 Essential (primary) hypertension; E66.9 Obesity, unspecified; Z68.33 Body mass index [BMI] 33.0-33.9, adult; Z79.82 Long term (current) use of aspirin; K21.9 Gastro-esophageal reflux disease without esophagitis; F41.8 Other specified anxiety disorders; F17.210 Nicotine dependence, cigarettes, uncomplicated; Z82.49 Family history of ischemic heart disease and other diseases of the circulatory system
CPT/HCPCS: 36415; 80048; 85025; 93458; 99152; 99153; C1769; C1887; C1894; J1644; J2250; J3010; J3490; J7030; J9999; Q0163; Q9967